=== PATIENT | male | born 1955 | race Caucasian/White ===

== ENCOUNTER 2016-12-06 14:09 | Emergency (ER) | payer BC ==
--- NOTE | 2016-12-06 15:14 | ED ---
General Adult HPI - General Chief complaint: Extremity Problem,Nontraumatic Stated complaint: Leg Pain Time Seen by Provider: 12/06/16 14:58 Source: patient, RN notes reviewed Mode of arrival: wheelchair Limitations: no limitations - History of Present Illness Initial comments: This is a 61-year-old male who presents with right lower extremity pain 2 weeks. Patient states he has pain to the posterior right leg along with intermittent diminished sensation to the right lower extremity. Patient is able to ambulate but states this is painful. Patient denies any injury or trauma to the right lower extremity. Patient confirms that he has had some pain to his tailbone and has had multiple injuries over the years to the tailbone but no recent injury. Patient denies any lower back pain today. Patient denies any radicular pain, weakness/numbness or tingling today in the [facility]. Patient admits to tobacco use but denies any history of blood clots. Patient denies noticing any swelling. Patient denies any triggers of the pain and states it started randomly. Patient denies any recent fever, chills, shortness breath, chest pain, abdominal pain, nausea/vomiting/diarrhea, hematuria, headache, or visual changes, or any other complaints. - Related Data Previous Rx's Medication Instructions Recorded Cyclobenzaprine [Flexeril] 5 mg PO HS 3 Days 12/06/16 Dexamethasone 0.75 mg PO DIRECTED #12 tab 12/06/16 Allergies Allergy/AdvReac Type Severity Reaction Status Date / Time No Known Allergies Allergy Verified 12/06/16 14:21 Review of Systems ROS Statement: Those systems with pertinent positive or pertinent negative responses have been documented in the HPI. ROS Other: All systems not noted in ROS Statement are negative. Past Medical History Past Medical History: COPD History of Any Multi-Drug Resistant Organisms: None Reported Past Psychological History: No Psychological Hx Reported Smoking Status: Current every day smoker Past Alcohol Use History: None Reported Past Drug Use History: None Reported General Exam - General Exam Comments Initial Comments: General: The patient is awake and alert, in no distress, and does not appear acutely ill. Neck: The neck is supple, there is no tenderness or JVD. Cardiovascular: There is a regular rate and rhythm. No murmur, rub or gallop is appreciated. Respiratory: Lungs are clear to auscultation, respirations are non-labored, breath sounds are equal. No wheezes, stridor, rales, or rhonchi. Musculoskeletal: There is tenderness to palpation to the posterior right thigh, right knee and right calf. There is no swelling, erythema or ecchymosis. Patient has mild tenderness to the lower lumbar spine/sacrum. Patient has full range of motion, strength 5/5. Sensation intact. Dorsalis pedis and posterior tibial pulses laterally and capillary refill is normal at less than 2 seconds. Neurological: A&O x 3. CN II-XII intact, There are no obvious motor or sensory deficits. Coordination appears grossly intact. Speech is normal. Skin: Skin is warm and dry and no rashes or lesions are noted. Psychiatric: Normal mood and affect. Limitations: no limitations Course Vital Signs 12/06/16 12/06/16 14:18 17:00 Temperature 97.8 F 98.0 F Pulse Rate 66 80 Respiratory 20 18 Rate Blood Pressure 150/81 136/68 O2 Sat by Pulse 98 98 Oximetry Medical Decision Making - Medical Decision Making This is a 61-year-old male presents with right lower extremity pain. On physical exam patient is ambulatory in the . There is tenderness to palpation to the posterior right thigh, right knee and right calf. There is no swelling, erythema or ecchymosis. Patient has mild tenderness to the lower lumbar spine/sacrum. Patient has full range of motion, strength 5/5. Sensation intact. Dorsalis pedis and posterior tibial pulses laterally and capillary refill is normal at less than 2 seconds. X-rays of the lumbar spine and sacrum were done and reviewed showing: X-ray lumbar spine: No acute fracture or dislocation is seen in the lumbar spine. Degenerative changes as discussed: there is severe degenerative change noted at L4-L5 and moderate to severe narrowing at L5-S1. Scattered ventral spondylosis as well as facet joint arthropathy. No evidence for compression fracture or osseous lesion. Report read by Dr. Blackburn. X-ray sacrum and coccyx: Normal study. Reported by Dr. Blackburn A Doppler of the right lower extremity was done and reviewed showing: No evident deep venous thrombosis at or above the right knee. Reported by Dr. Hartmann. I discussed the results with patient. I discussed that the degenerative changes in his back could be causing his pain. Patient admits at this point that this pain did start with mild shooting pain down the right leg. I discussed [id number] Aleve and Tylenol. I discussed the patient be given a prescription for Flexeril to take at night and I discussed sedation effects. I discussed that the patient will be started on a prescription for Decadron dose pack as well. I discussed return parameters and at the patient should follow-up with orthopedics. Discussed that patient should follow up with PCP in one to 2 days or return to the [facility] for any worsening symptoms or for any further concerns. Patient and were receptive to this plan and patient will be discharged home. I discussed this case with attending physician Dr. Ervin who agrees the plan as stated above. Disposition Clinical Impression: Right leg pain, Back pain, Radiculopathy Disposition: HOME SELF-CARE Condition: Good Instructions: Back Pain (ED) Additional Instructions: Please use prednisone and Flexeril as prescribed. Please do not drink alcohol or drive while taking Flexeril can make you drowsy. These use [id number] Tylenol and Motrin/Aleve/naproxen for back pain. Ice or heating pad may help as well. Please follow-up with orthopedics and your primary care physician. Please return to the [facility] for any worsening symptoms or for any further concerns. Prescriptions: Cyclobenzaprine [Flexeril] 5 mg PO HS 3 Days Dexamethasone 0.75 mg PO DIRECTED #12 tab Referrals: Sydnee Sandy MD [Primary Care Provider] - 1-2 days Julian Raya MD [STAFF PHYSICIAN] - 1-2 days Time of Disposition: 16:53
--- NOTE | 2016-12-06 15:42 | XR ---
EXAMINATION TYPE: XR lumbar spine 2 or 3V DATE OF EXAM: 12/06/2016 3:35 PM CLINICAL HISTORY: pain TECHNIQUE: Three views of the lumbar spine are submitted. COMPARISON: None. FINDINGS: There is severe degenerative change noted at L4-5 and moderate to severe narrowing at L5-S1. Scattere d ventral spondylosis as well as facet joint arthropathy. No evidence for compression fracture osseou s lesion. IMPRESSION: No acute fracture or dislocation is seen in the lumbar spine. Degenerative changes as discussed. ICD 10 NO FRACTURE, INITIAL EVALUATION
--- NOTE | 2016-12-06 15:42 | XR ---
EXAMINATION TYPE: XR sacrum coccyx DATE OF EXAM: 12/06/2016 3:35 PM CLINICAL HISTORY: pain TECHNIQUE: Three views of the sacrum and coccyx are submitted. COMPARISON: None Sacral alae appear symmetric. No evidence for fracture or bony lesion. Sacroiliac joints are within normal limits. Visualized coccygeal segments are free of fracture or lesion. IMPRESSION: Normal study
--- NOTE | 2016-12-06 16:36 | US ---
EXAMINATION TYPE: US venous doppler duplex LE RT DATE OF EXAM: 12/06/2016 4:18 PM COMPARISON: NONE CLINICAL HISTORY: Pain. Rt leg pain. No hx of blood clots or on any blood thinners SIDE PERFORMED: Right VESSELS IMAGED: External Iliac Vein (EIV) Common Femoral Vein Deep Femoral Vein Greater Saphenous Vein * Femoral Vein Popliteal Vein Small Saphenous Vein * Proximal Calf Veins (* superficial vessels) Right Leg: Appears negative for DVT. Lymph nodes incidentally noted right groin. Grayscale, color Doppler, spectral Doppler imaging performed of the deep veins of the right lower ext remity. IMPRESSION: No evident deep venous thrombosis at or above the right knee.
[2016-12-06 17:07] VITALS: BP 136/68; PULSE 80; RESP 18; TEMP 98
== END 2016-12-06 17:00 | disposition home or self-care (01) ==
LOC: EC 14:09
DX: M48.07 Spinal stenosis, lumbosacral region (principal); M46.96 Unspecified inflammatory spondylopathy, lumbar region; M47.26 Other spondylosis with radiculopathy, lumbar region; F17.200 Nicotine dependence, unspecified, uncomplicated; Z87.828 Personal history of other (healed) physical injury and trauma
CPT/HCPCS: 72100; 72220; 99284

== ENCOUNTER 2018-08-18 16:26 | Emergency (ER) | payer BC ==
[2018-08-18 16:43] VITALS: RESP 18; TEMP 99
[2018-08-18 17:06] LABS: Basophils # (A) 0.1 k/uL (0-0.2); Basophils % (A) 1 %; Eosinophils # (A) 0.8 k/uL (0-0.7); Eosinophils % (A) 6 %; HCT 41.9 % (39.0-53.0); HGB 14.1 gm/dL (13.0-17.5); Lymphocytes # (A) 2.1 k/uL (1.0-4.8); Lymphocytes % (A) 16 %; MCH 33.2 pg (25.0-35.0); MCHC 33.5 g/dL (31.0-37.0); MCV 99.1 fL (80.0-100.0); Mean Platelet Volume 6.6; Monocytes % (A) 8 %; Neutrophils # (A) 9.2 k/uL (1.3-7.7); Neutrophils % (A) 68 %; Platelet Count 316 k/uL (150-450); RBC 4.23 m/uL (4.30-5.90); RDW 12.2 % (11.5-15.5); WBC 13.5 k/uL (3.8-10.6)
[2018-08-18 17:16] LABS: INR 0.9 (<1.2); Partial Thromboplastin Time 22.4 sec (22.0-30.0); Prothrombin Time 10.2 sec (9.0-12.0)
[2018-08-18 17:24] LABS: ALT 23 U/L (21-72); AST 20 U/L (17-59); Albumin 3.6 g/dL (3.5-5.0); Alkaline Phosphatase 54 U/L (38-126); Anion Gap 9 mmol/L; Blood Urea Nitrogen 10 mg/dL (9-20); Calcium 8.7 mg/dL (8.4-10.2); Carbon Dioxide 23 mmol/L (22-30); Chloride 104 mmol/L (98-107); Glucose 91 mg/dL (74-99); Lipase 150 U/L (23-300); Magnesium 1.8 mg/dL (1.6-2.3); Potassium 4.1 mmol/L (3.5-5.1); Sodium 136 mmol/L (137-145); Total Bilirubin 0.3 mg/dL (0.2-1.3); Total Protein 6.3 g/dL (6.3-8.2)
[2018-08-18 17:25] LABS: Creatine Kinase 65 U/L (55-170)
[2018-08-18 17:38] LABS: Creatine Kinase MB 0.5 ng/mL (0.0-2.4); Troponin I <0.012 ng/mL (0.000-0.034)
--- NOTE | 2018-08-18 17:42 | ED ---
Chest Pain HPI - General Chief Complaint: Chest Pain Stated Complaint: chest pain Time Seen by Provider: 08/18/18 16:27 Source: patient, RN notes reviewed, old records reviewed Mode of arrival: EMS Limitations: no limitations - History of Present Illness Initial Comments: This is a 62-year-old male to the ER for evaluation of chest pain. Patient was at the bar drinking some alcohol today had 3 or 4 beers and then persisted with chest pain chest pain anteriorly to both lateral ribs. Patient has history of COPD no other medications takes no other medications. No surgical history. No abdominal pain no nausea vomiting. No diaphoresis, no shortness of breath currently. Patient states the chest pain has persisted -: hour(s) Onset: during rest Pain Location: substernal, epigastric Pain Radiation: other (Bilateral flanks) Severity: moderate Severity scale (1-10): 6 Quality: sharp Consistency: constant Improves With: nothing Worsens With: nothing Context: other (None) Anginal Symptoms: other (None) Other Symptoms: other (None) Treatments Prior to Arrival: none - Related Data Home Medications Medication Instructions Recorded Confirmed Albuterol Inhaler [Ventolin Hfa 2 puff INHALATION RT-QID PRN 08/18/18 08/18/18 Inhaler] Albuterol Nebulized [Ventolin 2.5 mg INHALATION RT-QID PRN 08/18/18 08/18/18 Nebulized] Levothyroxine Sodium [Synthroid] 100 mcg PO DAILY 08/18/18 08/18/18 Allergies Allergy/AdvReac Type Severity Reaction Status Date / Time No Known Allergies Allergy Verified 08/18/18 16:32 Review of Systems ROS Statement: Those systems with pertinent positive or pertinent negative responses have been documented in the HPI. ROS Other: All systems not noted in ROS Statement are negative. EKG Findings - EKG Comments: EKG Findings:: EKG shows NSR 63 WA 154 QRS 100 QTc 442 Past Medical History Past Medical History: COPD, Thyroid Disorder Additional Past Medical History / Comment(s): pvd History of Any Multi-Drug Resistant Organisms: None Reported Additional Past Surgical History / Comment(s): bypass in legs Past Psychological History: No Psychological Hx Reported Smoking Status: Current every day smoker Past Alcohol Use History: Daily Past Drug Use History: None Reported General Exam Limitations: no limitations General appearance: alert, in no apparent distress Head exam: Present: atraumatic, normocephalic, normal inspection Eye exam: Present: normal appearance, PERRL, EOMI. Absent: scleral icterus, conjunctival injection, periorbital swelling ENT exam: Present: normal exam, mucous membranes moist Neck exam: Present: normal inspection. Absent: tenderness, meningismus, lymphadenopathy Respiratory exam: Present: normal lung sounds bilaterally. Absent: respiratory distress, wheezes, rales, rhonchi, stridor Cardiovascular Exam: Present: regular rate, normal rhythm, normal heart sounds. Absent: systolic murmur, diastolic murmur, rubs, gallop, clicks GI/Abdominal exam: Present: soft, normal bowel sounds. Absent: distended, tenderness, guarding, rebound, rigid Extremities exam: Present: normal inspection, full ROM, normal capillary refill. Absent: tenderness, pedal edema, joint swelling, calf tenderness Back exam: Present: normal inspection Neurological exam: Present: alert, oriented X3, CN II-XII intact Psychiatric exam: Present: normal affect, normal mood Skin exam: Present: warm, dry, intact, normal color. Absent: rash Course Vital Signs 08/18/18 08/18/18 08/18/18 16:33 16:37 17:00 Temperature 99.0 F Pulse Rate 60 61 Respiratory 18 Rate Blood Pressure 135/84 135/84 O2 Sat by Pulse 96 97 98 Oximetry 08/18/18 08/18/18 08/18/18 18:00 19:01 20:00 Temperature Pulse Rate 53 L 48 L 54 L Respiratory Rate Blood Pressure 135/84 147/102 165/102 O2 Sat by Pulse 100 100 97 Oximetry 08/18/18 21:00 Temperature Pulse Rate 48 L Respiratory Rate Blood Pressure 149/86 O2 Sat by Pulse 100 Oximetry - Reevaluation(s) Reevaluation #1: 08/18/18 18:26 Medical record is reviewed Reevaluation #2: 08/18/18 18:26 Patient requesting pain medication, pain is improved Chest Pain MDM - MDM 62 male the ER for evaluation chest pain nonspecific chest pain that occurred after drinking alcohol tonight. Patient's pain is epigastric radiating around chest, patient is CT which is negative labwork which is negative. Patient wanted to stay in hospital, refusing to stay in hospital will be discharged home Disposition Clinical Impression: Chest pain Disposition: HOME SELF-CARE Condition: Good Instructions: Chest Pain (ED) Is patient prescribed a controlled substance at d/c from ED?: No Referrals: Sydnee Sandy MD [Primary Care Provider] - 1-2 days
[2018-08-18] MEDS ORDERED: MORPHINE SULFATE 4 MG/ML SYRINGE IVP STA (17:58)
--- NOTE | 2018-08-18 20:15 | CT ---
EXAMINATION TYPE: CT angio chest DATE OF EXAM: 08/18/2018 8:06 PM COMPARISON: None HISTORY: Chest pain. CT DLP: 323.2 mGycm Automated exposure control for dose reduction was used. CONTRAST: CTA scan of the thorax is performed with IV Contrast, patient injected with 100ml mL of Isovue 370, p ulmonary embolism protocol. There are 3-D post processed images.. FINDINGS: There is diffuse pulmonary emphysema. There is pulmonary hyperinflation mild flattening of the diaphr agm. There is no mediastinal adenopathy. Thoracic aorta is atheromatous. There is no evidence of aneu rysm or dissection. There are multiple enlarged bronchial lymph nodes that measure up to 2.3 cm. Ther e is subcarinal adenopathy. There is enlarged peritracheal lymph node that measures 2.2 cm. There is enlarged lymph node in the aortopulmonary window that measures 2.7 x 2 cm. Heart size is normal. Ther e is no pericardial effusion. There is mild scarring and subsegmental atelectasis at the lung bases. Images of the upper abdomen appeared to show some enlarged mesenteric lymph nodes. There is normal contrast opacification of the pulmonary arteries. I see no filling defect. There is n o thoracic compression fracture. I see no bony destructive process. IMPRESSION: NO EVIDENCE OF PULMONARY EMBOLISM. MEDIASTINAL AND BRONCHIAL ADENOPATHY APPEARS SLIGHTLY WORSE THAN O LD CT SCAN OF 07/26/2016. LYMPHOMA SHOULD BE CONSIDERED.
--- NOTE | 2018-08-18 20:20 | CT ---
EXAMINATION TYPE: CT abdomen pelvis w con DATE OF EXAM: 08/18/2018 COMPARISON: None HISTORY: Chest pain. CT DLP: 621.7 mGycm Automated exposure control for dose reduction was used. TECHNIQUE: Helical acquisition of images was performed from the lung bases through the pelvis. CONTRAST: Performed without Oral Contrast and with IV Contrast, patient injected with 100ml mL of Isovue 370. FINDINGS: There is mild atelectasis at the posterior lung bases. There is no pleural effusion. Liver shows no focal defect. Spleen appears normal. The stomach appears normal. There is no evidence of a pancreatic mass. The bile ducts are not dilated. Gallbladder appears normal. There is a 12 mm ce liac lymph node. I see no other significant evidence for mesenteric adenopathy. There is no adrenal mass. Kidneys show satisfactory contrast opacification. There is no hydronephrosi s. There is no retroperitoneal adenopathy. There is no ascites. Bladder distends smoothly. There is p rostatic calcification. There is no inguinal hernia. There is no free fluid in the pelvis. There is n o sign of a bowel obstruction. There is atherosclerotic vascular calcification in the abdominal aorta and the iliac arteries. The appendix appears normal. There are spondylotic changes in the lumbar spi ne. There is no compression fracture. Bony pelvis is intact. I see no focal bone destruction. IMPRESSION: ATHEROSCLEROTIC VASCULAR DISEASE. No sign of an acute abdomen and pelvis. Normal appendix. Urinary bl adder is large and could relate to bladder outlet obstruction.
[2018-08-18 21:33] VITALS: BP 149/86; PULSE 48
--- NOTE | 2018-08-19 02:43 | XR ---
EXAMINATION TYPE: XR chest 2V DATE OF EXAM: 08/18/2018 COMPARISON: 09/24/2015 HISTORY: Chest pain TECHNIQUE: Frontal and lateral views of the chest are obtained. FINDINGS: There is some coarsening of interstitial pulmonary markings. Heart size is normal. There i s no heart failure. Costophrenic angles are clear. There are chest leads. IMPRESSION: Minimal pulmonary fibrotic changes. There is probably some COPD. No acute lung disease. No significant change.
== END 2018-08-18 21:31 | disposition home or self-care (01) ==
LOC: EC 16:26
DX: R07.81 Pleurodynia (principal); R10.13 Epigastric pain; J44.9 Chronic obstructive pulmonary disease, unspecified; E07.9 Disorder of thyroid, unspecified; I73.9 Peripheral vascular disease, unspecified; F17.200 Nicotine dependence, unspecified, uncomplicated; Z79.899 Other long term (current) drug therapy; Z98.890 Other specified postprocedural states
CPT/HCPCS: 36415; 93005; 83880; 80053; 82550; 82553; 83690; 83735; 84484; 85025; 85610; 85730; 80320; 71046; 71275; 74177; 99285; 96374; J2270; Q9967

== ENCOUNTER → 2019-06-06 | Outpatient (CLI) | payer OTHER ==
--- NOTE | 2019-06-06 16:12 | CT ---
EXAMINATION TYPE: CT chest w con DATE OF EXAM: 06/06/2019 COMPARISON: CT 08/18/2018 HISTORY: enlarged lymph nodes. hx of thyroid ca. CT DLP: 489 mGycm Automated exposure control for dose reduction was used. CONTRAST: CT scan of the chest is performed with IV Contrast, patient injected with 100 mL of Isovue 300. FINDINGS: LUNGS: The lungs are grossly clear, there is no concerning parenchymal mass or nodule identified. Th ere is moderate emphysema as noted on prior exam. There is no pleural effusion or pneumothorax seen. The tracheobronchial tree is patent. MEDIASTINUM: There is similar appearance to the bilateral hilar adenopathy. Subcarinal adenopathy, re trocaval pre tracheal and aorticopulmonary window adenopathy, prevascular nodes are similar in appear ance. No pericardial effusion is seen. Coronary artery calcifications are moderate. AORTA: No additional significant abnormality is seen. OTHER: No additional significant abnormality is seen. IMPRESSION: Mediastinal adenopathy, hilar adenopathy shows a similar appearance to prior exam. Coron shelia artery disease. Emphysema.
== END | disposition home or self-care (01) ==
LOC: RADCTMAIN 14:42
PROVIDERS: ATTEND Thoracic Surgery (Cardiothoracic Vascular Surgery)
DX: R59.0 Localized enlarged lymph nodes (principal); J43.9 Emphysema, unspecified; I25.10 Atherosclerotic heart disease of native coronary artery without angina pectoris
CPT/HCPCS: 71260; Q9967

== ENCOUNTER → 2020-02-13 | Outpatient (CLI) | payer OTHER ==
--- NOTE | 2020-02-13 11:01 | CT ---
EXAMINATION TYPE: CT chest w con DATE OF EXAM: 02/13/2020 COMPARISON: Prior chest CT June 06, 2019 and older studies. HISTORY: hx of enlarged lymph nodes CT DLP: 248.5 mGycm. Automated Exposure Control for Dose Reduction was Utilized. TECHNIQUE: CT scan of the thorax is performed following with IV Contrast, patient injected with 100 mL of Isovue 300. FINDINGS: LUNGS: Background mild to moderate underlying emphysematous change remains present. Focal mild/modera te linear scarring in the right middle lobe just above the diaphragm and mild linear scarring in both lower lobes just above the diaphragm is redemonstrated. No new suspicious nodules or masses. No pleu ral effusion or pneumothorax bilaterally. MEDIASTINUM: There are persistent abnormal enlarged bilateral hilar and mediastinal lymph nodes with some areas of punctate calcification in the bilateral hilar along with subcarinal, prevascular, and r ight tracheobronchial lymph nodes. The confluent right paratracheal adenopathy is larger from 2016 s tudies but not significantly changed from most recent CT in 2019. No cardiomegaly or pericardial effu gerry is seen. There is coronary artery calcification and/or stents redemonstrated. OTHER: Persistent prominent but subcentimeter bilateral axillary lymph nodes with some punctate calci fications. There is a single enlarged high left axillary lymph node with inferior calcification measu ring 2.6 x 1.6 cm axial image 9 not significantly changed from most recent CT. Axillary lymph nodes a re larger in size from 2016 CT. Slight scoliotic curvature with mild to moderate multilevel spurring. IMPRESSION: Persistent enlarged partially calcified thoracic adenopathy with progression in size from 2016, no significant change from most recent study 2019. Differential includes product of old granul omatous disease, sarcoidosis/silicosis, and possible other less common causes such as Castleman's dis ease.
== END | disposition home or self-care (01) ==
LOC: RADCTMAIN 09:56
PROVIDERS: ATTEND Thoracic Surgery (Cardiothoracic Vascular Surgery)
DX: R59.9 Enlarged lymph nodes, unspecified (principal); D47.Z2 Castleman disease
CPT/HCPCS: 71260; Q9967

== ENCOUNTER 2024-02-10 14:32 | Inpatient (IN) | payer MEDICARE ==
--- NOTE | 2024-02-10 15:00 | ED ---
General Adult HPI - General Chief complaint: Chest Pain Stated complaint: Chest Pain Time Seen by Provider: 02/10/24 14:40 Source: patient, RN notes reviewed, old records reviewed Mode of arrival: EMS Limitations: no limitations - History of Present Illness Initial comments: This is a 68-year-old male who presents to the emergency department with a past medical history significant for COPD. Patient comes in today stating that he woke up this morning had pressure on the left side of his chest and has continued all day long. Patient states nitroglycerin they gave him in the ambulance seem to help. Patient also got 4 baby aspirin today. Patient states he is always short of breath that was difficult to tell if his shortness of breath got worse. Patient did not notice any exertion making it worse. Patient denies any diaphoresis. Patient has any nausea vomiting. Patient Nuys any recent fever chills but states he did have pneumonia in the recent past. Patient denies any swelling to his legs that is new. Patient Nuys any calf tenderness - Related Data Home Medications Medication Instructions Recorded Confirmed Albuterol Inhaler [Ventolin Hfa 2 puff INHALATION RT-QID PRN 08/18/18 08/18/18 Inhaler] Albuterol Nebulized [Ventolin 2.5 mg INHALATION RT-QID PRN 08/18/18 08/18/18 Nebulized] Levothyroxine Sodium [Synthroid] 100 mcg PO DAILY 08/18/18 08/18/18 Allergies Allergy/AdvReac Type Severity Reaction Status Date / Time No Known Allergies Allergy Verified 08/18/18 16:32 Review of Systems ROS Statement: Those systems with pertinent positive or pertinent negative responses have been documented in the HPI. ROS Other: All systems not noted in ROS Statement are negative. Past Medical History Past Medical History: COPD, Thyroid Disorder Additional Past Medical History / Comment(s): pvd History of Any Multi-Drug Resistant Organisms: None Reported Additional Past Surgical History / Comment(s): bypass in legs Past Psychological History: No Psychological Hx Reported Smoking Status: Former smoker Past Alcohol Use History: Daily Past Drug Use History: None Reported General Exam - General Exam Comments Initial Comments: GENERAL: Patient is well-developed and well-nourished. Patient is nontoxic and well- hydrated and is in mild distress. ENT: Neck is soft and supple. No significant lymphadenopathy is noted. Oropharynx is clear. Moist mucous membranes. Neck has full range of motion without eliciting any pain. EYES: The sclera were anicteric and conjunctiva were pink and moist. Extraocular movements were intact and pupils were equal round and reactive to light. Eyelids were unremarkable. PULMONARY: Unlabored respirations. Good breath sounds bilaterally. No audible rales rhon chi or wheezing was noted. CARDIOVASCULAR: There is a regular rate and rhythm without any murmurs gallops or rubs. ABDOMEN: Soft and nontender with normal bowel sounds. No palpable organomegaly was noted. There is no palpable pulsatile mass. SKIN: Skin is clear with no lesions or rashes and otherwise unremarkable. NEUROLOGIC: Patient is alert and oriented x3. Cranial nerves II through XII are grossly intact. Motor and sensory are also intact. Normal speech, volume and content. Symmetrical smile. MUSCULOSKELETAL: Normal extremities with adequate strength and full range of motion. No lower extremity swelling or edema. No calf tenderness. LYMPHATICS: No significant lymphadenopathy is noted PSYCHIATRIC: Normal psychiatric evaluation. Normal interpersonal interactions appears functionally intact in deals appropriately with others. No signs of depression. No signs of anxiety. Limitations: no limitations Course Vital Signs 02/10/24 14:43 Temperature 97.4 F L Pulse Rate 51 L Respiratory 20 Rate Blood Pressure 176/90 O2 Sat by Pulse 98 Oximetry Medical Decision Making - Medical Decision Making EKG is interpreted by myself. EKG shows sinus bradycardia 47 bpm [place] interval 136 QRS is 90 QT interval is 476 QTc is 440. Patient's EKG shows no ST segment elevation. Patient's bradycardia is been consistent with previous visits Was pt. sent in by a medical professional or institution (, PA, SPEECH LANG PATH THERAPIST, urgent care, hospital, or halfway...) When possible be specific @ -No Did you speak to anyone other than the patient for history (EMS, parent, family, police, friend...)? What history was obtained from this source @ -No Did you review nursing and triage notes (agree or disagree)? Why? @ -I reviewed and agree with nursing and triage notes Were old charts reviewed (outside hosp., previous admission, EMS record, old EK G, old radiological studies, urgent care reports/EKG's, halfway records)? Report findings @ -I reviewed prior charts and this patient prior x-rays and compared to today's x-ray and prior lab work comparing previous troponins with today's troponin Differential Diagnosis (chest pain, altered mental status, abdominal pain women, abdominal pain men, vaginal bleeding, weakness, fever, dyspnea, syncope, headache, dizziness, GI bleed, back pain, seizure, CVA, palpatations, mental health, musculoskeletal)? @ -Differential Chest Pain: Stable Angina, Unstable Angina, STEMI, NSTEMI Aortic Dissection, Pneumothorax, Musculoskeletal, Esophageal Spasm GERD, Cholecystitis, Pancreatitis, Zoster, this is not meant to be an all-inclusive list. EKG interpreted by me (3pts min.). @ -As above X-rays interpreted by me (1pt min.). @ -Chest x-ray shows no acute abnormality CT interpreted by me (1pt min.). @ -None done U/S interpreted by me (1pt. min.). @ -None done What testing was considered but not performed or refused? (CT, X-rays, U/S, labs)? Why? @ -None What meds were considered but not given or refused? Why? @ -None Did you discuss the management of the patient with other professionals (pro fessionals i.e. , PA, SPEECH [employer]ANG PATH THERAPIST, lab, RT, psych nurse, social worker clinical, dye worker, teacher, ordnance officer, pillowcase cutter)? Give summary @ -I spoke with [facility] they agreed admit the patient admit the patient wrote admitting orders Was smoking cessation discussed for >3mins.? @ -No Was critical care preformed (if so, how long)? @ -No Were there social determinants of health that impacted care today? How? (Homelessness, low income, unemployed, alcoholism, drug addiction, transportation, low edu. Level, literacy, decrease access to med. care, custodial, rehab)? @ -No Was there de-escalation of care discussed even if they declined (Discuss DNR or withdrawal of care, Hospice)? DNR status @ -No What co-morbidities impacted this encounter? (DM, HTN, Smoking, COPD, CAD, Cancer, CVA, ARF, Chemo, Hep., AIDS, mental health diagnosis, sleep apnea, morbid obesity)? @ -COPD hypertension smoking Was patient admitted / discharged? Hospital course, mention meds given and route, prescriptions, significant lab abnormalities, going to OR and other pertinent info. @ -Patient was given Nitropaste in the emergency department labs came back within normal range chest x-ray showed no acute normality I spoke with [facility] they agreed admit the patient to the patient with admitting orders Undiagnosed new problem with uncertain prognosis? @ -No Drug Therapy requiring intensive monitoring for toxicity (Heparin, Nitro, Insulin, Cardizem)? @ -No Were any procedures done? @ -No Diagnosis/symptom? @ -Chest pain Acute, or Chronic, or Acute on Chronic? @ -Acute Uncomplicated (without systemic symptoms) or Complicated (systemic symptoms)? @ -Complicated Side effects of treatment? @ -No Exacerbation, Progression, or Severe Exacerbation? @ -No Poses a threat to life or bodily function? How? (Chest pain, USA, MS, pneumonia, PE, COPD, DKA, ARF, appy, cholecystitis, CVA, Diverticulitis, Homicidal, Suicidal, threat to staff... and all critical care pts) @ -Yes this can lead to an MS and endorgan dysfunction Disposition Clinical Impression: Chest pain Disposition: ADMITTED IP TO THIS HOSP Referrals: Sydnee Sandy MD [Primary Care Provider] - 1-2 days Time of Disposition: 15:43
[2024-02-10] MEDS ORDERED: NITROGLYCERIN SL TABS 0.4 MG TAB SUBLINGUAL PRN (15:43)
[2024-02-10] MEDS: NITROGLYCERIN OINT 1 INCH/GM PACKET TOPICAL STA (15:44)
[2024-02-10 15:57] LABS: Basophils # (A) 0.1 k/uL (0-0.2); Basophils % (A) 1 %; Eosinophils # (A) 0.1 k/uL (0-0.7); Eosinophils % (A) 2 %; HCT 35.3 % (39.0-53.0); HGB 10.8 gm/dL (13.0-17.5); Lymphocytes # (A) 0.7 k/uL (1.0-4.8); Lymphocytes % (A) 10 %; MCH 29.4 pg (25.0-35.0); MCHC 30.6 g/dL (31.0-37.0); MCV 95.8 fL (80.0-100.0); Mean Platelet Volume 7.2; Monocytes # (A) 0.5 k/uL (0-1.0); Monocytes % (A) 7 %; Neutrophils # (A) 5.4 k/uL (1.3-7.7); Neutrophils % (A) 78 %; Platelet Count 458 k/uL (150-450); RBC 3.68 m/uL (4.30-5.90); RDW 15.5 % (11.5-15.5); WBC 6.9 k/uL (3.8-10.6)
[2024-02-10 16:06] LABS: INR 1.1 (<1.2); Partial Thromboplastin Time 26.7 sec (22.0-30.0); Prothrombin Time 11.9 sec (10.0-12.5)
[2024-02-10] MEDS ORDERED: IPRATROPIUM-ALBUTEROL 3 ML NEB INHALATION PRN (16:06)
--- NOTE | 2024-02-10 16:07 | XR ---
EXAMINATION TYPE: XR chest 2V DATE OF EXAM: 02/10/2024 3:59 PM CLINICAL INDICATION:Male, 68 years old with history of Chest Pain; COMPARISON: Chest radiographs from 07/19/2018 TECHNIQUE: XR chest 2V Frontal and lateral views of the chest. FINDINGS: Lungs/Pleura: Right pleural effusion with associated atelectasis. There is small left pleural effusion also present . Pulmonary vascularity: Unremarkable. Heart/mediastinum: Cardiomediastinal silhouette is partially obscured due to overlying and adjacent o pacities. Musculoskeletal: No acute osseous pathology. IMPRESSION: Development of bilateral pleural effusions, right greater than left.
[2024-02-10 16:11] LABS: ALT 147 U/L (4-49); AST 149 U/L (17-59); African American GFR (CKD) >90 (>60 ml/min/1.73 sqM); Alkaline Phosphatase 85 U/L (38-126); Anion Gap 4 mmol/L; Blood Urea Nitrogen 18 mg/dL (9-20); Calcium 8.1 mg/dL (8.4-10.2); Carbon Dioxide 29 mmol/L (22-30); Chloride 102 mmol/L (98-107); Glucose 98 mg/dL (74-99); Magnesium 1.9 mg/dL (1.6-2.3); Non-African American GFR(CKD) >90 (>60 ml/min/1.73 sqM); Potassium 3.4 mmol/L (3.5-5.1); Sodium 135 mmol/L (137-145); Total Protein 5.5 g/dL (6.3-8.2)
--- NOTE | 2024-02-10 16:33 | P.HPIM ---
History of Present Illness 68-year-old male came in with complaints of left-sided chest pain which started today morning. Troponin is negative EKG did not show any acute ST-T wave changes. Patient had a chest x-ray which showed bilateral pleural effusions patient did complain of some shortness of breath denies any orthopnea paroxysmal nocturnal dyspnea patient does not have any peripheral edema. Patient serum sodium is slightly low at 135. Patient took 4 baby aspirin's. Patient's chest pain is nonradiating no associated shortness of breath or lightheadedness. No fever chills. Patient does have cough. Patient does use 4 L of oxygen at home does have history of COPD quit smoking. REVIEW OF SYSTEMS: CONSTITUTIONAL: No fever, no malaise, no fatigue. HEENT: No recent visual problems or hearing problems. Denied any sore throat. CARDIOVASCULAR: No orthopnea, PND, no palpitations, no syncope. PULMONARY: no hemoptysis. GASTROINTESTINAL: No diarrhea, no nausea, no vomiting, no abdominal pain. NEUROLOGICAL: No headaches, no weakness, no numbness. HEMATOLOGICAL: Denies any bleeding or petechiae. GENITOURINARY: Denies any burning micturition, frequency, or urgency. MUSCULOSKELETAL/RHEUMATOLOGICAL: Denies any joint pain, swelling, or any muscle pain. ENDOCRINE: Denies any polyuria or polydipsia. The rest of the 14-point review of systems is negative. PHYSICAL EXAMINATION: GENERAL: The patient is alert and oriented x3, not in any acute distress. Well developed, well nourished. HEENT: Pupils are round and equally reacting to light. EOMI. No scleral icterus. No conjunctival pallor. Normocephalic, atraumatic. No pharyngeal erythema. No thyromegaly. CARDIOVASCULAR: S1 and S2 present. No murmurs, rubs, or gallops. PULMONARY: Chest is clear to auscultation, no wheezing or crackles. ABDOMEN: Soft, nontender, nondistended, normoactive bowel sounds. No palpable organomegaly. MUSCULOSKELETAL: No joint swelling or deformity. EXTREMITIES: No cyanosis, clubbing, or pedal edema. NEUROLOGICAL: Gross neurological examination did not reveal any focal deficits. SKIN: No rashes. Assessment and plan Chest pain will rule out acute coronary syndromes cardiology will evaluate the patient -Bilateral pleural effusions probably congestive heart failure new onset will obtain echocardiogram rule out any BNP patient will be started on IV Lasix if there is no improvement patient will need paracentesis at the time. -Shortness of breath probably secondary to bilateral pleural effusions -COPD with mild acute exacerbation patient will be started on inhaled steroids and additional treatments -Chronic hypercapnic respiratory failure uses 4 L of oxygen at home which will be continued Patient is saturating at 98% on 4 L -Transaminitis probably due to hepatic congestion will also obtain ultrasound of the gallbladder along with hepatitis panel and repeat CMP tomorrow -Hypothyroidism DVT prophylaxis: Heparin text Past Medical History Past Medical History: COPD, Thyroid Disorder Additional Past Medical History / Comment(s): pvd History of Any Multi-Drug Resistant Organisms: None Reported Additional Past Surgical History / Comment(s): bypass in legs Past Psychological History: No Psychological Hx Reported Smoking Status: Former smoker Past Alcohol Use History: Daily Past Drug Use History: None Reported Medications and Allergies Home Medications Medication Instructions Recorded Confirmed Type Apixaban [Eliquis] 5 mg PO DAILY 02/10/24 02/10/24 History Fluticasone/Umeclidin/Vilanter 1 puff INHALATION RT-DAILY 02/10/24 02/10/24 History [Trelegy Ellipta 100-62.5-25] Levothyroxine Sodium [Synthroid] 125 mcg PO DAILY 02/10/24 02/10/24 History Allergies Allergy/AdvReac Type Severity Reaction Status Date / Time No Known Allergies Allergy Verified 02/10/24 16:06 Physical Exam Vitals: Vital Signs Temp Pulse Resp BP Pulse Ox 02/10/24 14:43 97.4 F L 51 L 20 176/90 98 Intake and Output 02/10/24 02/10/24 02/10/24 06:59 14:59 22:59 Other: Weight 58.967 kg Results CBC & Chem 7: 02/10/24 14:36 02/10/24 14:36 Labs: Abnormal Lab Results - Last 24 Hours (Table) 02/10/24 02/10/24 Range/Units 14:36 14:36 RBC 3.68 L (4.30-5.90) m/uL Hgb 10.8 L (13.0-17.5) gm/dL Hct 35.3 L (39.0-53.0) % MCHC 30.6 L (31.0-37.0) g/dL Plt Count 458 H (150-450) k/uL Lymphocytes # 0.7 L (1.0-4.8) k/uL Sodium 135 L (137-145) mmol/L Potassium 3.4 L (3.5-5.1) mmol/L Creatinine 0.46 L (0.66-1.25) mg/dL Calcium 8.1 L (8.4-10.2) mg/dL AST 149 H (17-59) U/L ALT 147 H (4-49) U/L Total Protein 5.5 L (6.3-8.2) g/dL Albumin 3.0 L (3.5-5.0) g/dL
[2024-02-10] MEDS: POTASSIUM CHLORIDE ER 20 MEQ TAB.ER PO STA (16:50)
[2024-02-10] MEDS: FUROSEMIDE 10 MG/ML 4 ML VIAL IV SCH (18:19)
[2024-02-10] MEDS: APIXABAN 5 MG TAB PO SCH (20:00)
[2024-02-10] MEDS: IPRATROPIUM-ALBUTEROL 3 ML NEB INHALATION SCH (20:22)
[2024-02-10] MEDS: BUDESONIDE 0.5 MG/2 ML NEBU INHALATION SCH (20:22)
[2024-02-11] MEDS: TEMAZEPAM 7.5 MG CAP PO PRN (01:45)
[2024-02-11] MEDS: NITROGLYCERIN OINT 1 INCH/GM PACKET TOPICAL SCH (01:46)
[2024-02-11] MEDS: LEVOTHYROXINE 125 MCG TAB PO SCH (06:11)
[2024-02-11] MEDS ORDERED: LEVOTHYROXINE 100 MCG TAB PO SCH (06:30)
[2024-02-11 09:07] LABS: Chol/HDL Ratio 4.23 Ratio; LDL Cholesterol,Calculated 107.4 mg/dL (0.0-131.0); VLDL Calculation 15.54 mg/dL (5.00-40.00)
[2024-02-11] MEDS: ASPIRIN 325 MG TAB PO SCH (09:44)
--- NOTE | 2024-02-11 14:11 | CONS ---
CONSULTATION CHIEF COMPLAINT: Chest pain. HISTORY OF PRESENT ILLNESS: This is a 68-year-old gentleman with history of COPD on home O2 and hypothyroidism, who presented to hospital, complaining of chest pain. His chest discomfort is sharp, mild intensity, left-sided without definite radiation to neck, arm, or back. His EKG revealed sinus bradycardia with nonspecific ST-T wave changes. A chest x-ray showed bilateral pleural effusions. The patient was in the hospital recently and had significant mediastinal lymphadenopathy and had been evaluated by cardiothoracic surgeon and opted not to undergo biopsy or any surgery for it at that time. At the time of my evaluation, he appears comfortable at rest. Chest pain has resolved. EKG does not reveal ischemic changes and cardiac enzymes have been negative. PAST MEDICAL HISTORY: Significant for COPD on home O2 and hypothyroidism. He is also on Eliquis, I am not entirely sure for what reason. FAMILY HISTORY: Negative for premature coronary artery disease. SOCIAL HISTORY: Significant for smoking that he quit in October. Is also significant for ETOH abuse, which he quit at that time. REVIEW OF SYSTEMS: A review of systems has been performed, pertinences are as documented. PHYSICAL EXAMINATION: GENERAL: He appears comfortable at rest. VITAL SIGNS: Stable. Blood pressure is elevated. NECK: There is no jugular venous distention. CHEST: Reveals diminished air entry at the bases. HEART: Reveals first and second heart sounds. No murmur, no rub. ABDOMEN: Soft, nontender. EXTREMITIES: Reveal mild bilateral edema. Peripheral pulses are felt. ASSESSMENT: 1. Atypical chest pain. 2. History of mediastinal lymphadenopathy. 3. COPD. 4. Bilateral pleural effusions, probably related to new-onset congestive heart failure. PLAN: I am going to continue the nebulizers. Obtain a 2D echo. Continue the IV Lasix. Please supplement the potassium as his potassium was low when he first came in and will see why the patient is on Eliquis. MMODL / IJN: [id number] /
--- NOTE | 2024-02-11 17:12 | P.PN ---
Subjective Progress Note Date: 02/11/24 68-year-old male came in with complaints of left-sided chest pain which started today morning. Troponin is negative EKG did not show any acute ST-T wave changes. Patient had a chest x-ray which showed bilateral pleural effusions patient did complain of some shortness of breath denies any orthopnea paroxysmal nocturnal dyspnea patient does not have any peripheral edema. Patient serum sodium is slightly low at 135. Patient took 4 baby aspirin's. Patient's chest pain is nonradiating no associated shortness of breath or lightheadedness. No fever chills. Patient does have cough. Patient does use 4 L of oxygen at home does have history of COPD quit smoking. 02/11/2024 Patient is evaluated today in follow-up resting in the ER pending a bed on the medical floor. is at the bedside. Patient reports quitting smoking recently. He is maintained on 4 L of oxygen which he is currently on with adequate oxygen saturations of 99%. He does report improvement in his shortness of breath. He continues on IV Lasix with an echocardiogram currently pending. BUN of 18 creatinine of 0.46. His troponin level is negative x 3. proBNP was 1030 which is mildly elevated. Review of Systems Constitutional: Denied any fatigue denied any fever. Cardio vascular: denied any chest pain, palpitations Gastrointestinal: denied any nausea, vomiting, diarrhea Pulmonary: Denied any shortness of breath cough Neurologic denied any new focal deficits All inpatient medications were reviewed and appropriate changes in these medications as dictated in the interval history and assessment and plan. PHYSICAL EXAMINATION: GENERAL: The patient is alert and oriented x3, not in any acute distress. Well developed, well nourished. HEENT: Pupils are round and equally reacting to light. EOMI. No scleral icterus. No conjunctival pallor. Normocephalic, atraumatic. No pharyngeal erythema. No thyromegaly. CARDIOVASCULAR: S1 and S2 present. No murmurs, rubs, or gallops. PULMONARY: Chest is clear to auscultation, no wheezing or crackles. ABDOMEN: Soft, nontender, nondistended, normoactive bowel sounds. No palpable organomegaly. MUSCULOSKELETAL: No joint swelling or deformity. EXTREMITIES: No cyanosis, clubbing, or pedal edema. NEUROLOGICAL: Gross neurological examination did not reveal any focal deficits. SKIN: No rashes. Assessment and plan Chest pain will rule out acute coronary syndromes cardiology will evaluate the patient -Bilateral pleural effusions probably congestive heart failure new onset will obtain echocardiogram rule out any BNP patient will be started on IV Lasix, patient with improvement in his shortness of breath and his oxygen saturation is improving. -Shortness of breath probably secondary to bilateral pleural effusions -COPD with mild acute exacerbation patient will be started on inhaled steroids and additional treatments -Chronic hypercapnic respiratory failure uses 4 L of oxygen at home which will be continued Patient is saturating at 98% on 4 L -Transaminitis probably due to hepatic congestion will also obtain ultrasound of the gallbladder along with hepatitis panel and repeat CMP tomorrow -Hypothyroidism DVT prophylaxis: Heparin Continue on IV Lasix patient on strict intake and output monitoring The impression and plan of care has been dictated by Sarah Saeed, Nurse Practitioner as directed. Dr. Belgica MD I have performed a history and physical examination and medical decision making of this patient, discussed the same with the dictator, and agree with the dictators assessment and plan as written, documented as a scribe. Based on total visit time, I have performed more than 50% of this visit. Objective - Vital Signs Vital signs: Vital Signs Temp 98.1 F 02/11/24 16:10 Pulse 101 H 02/11/24 16:11 Resp 18 02/11/24 16:10 BP 114/70 02/11/24 16:10 Pulse Ox 100 02/11/24 16:10 FiO2 Intake & Output 02/10/24 02/11/24 02/11/24 18:59 06:59 18:59 Weight 58.967 kg - Labs CBC & Chem 7: 02/10/24 14:36 02/11/24 09:36 Labs: Abnormal Lab Results - Last 24 Hours (Table) 02/10/24 Range/Units 14:06 HDL Cholesterol 38.10 L (40.00-60.00) mg/dL Assessment and Plan Time with Patient: Less than 30
--- NOTE | 2024-02-11 17:42 | CA ---
Transthoracic Echo Report Name: Trey Lewis Age: 68 Gender: M : 1955 Exam Date: 02/11/2024 14:18 Exam Location: [facility] Ht (in): 72 Wt (lb): 130 Ordering Physician: Juliana Lindo MD Attending/Referring Phys: Solvent Process Extractor Operator Jany Chaudhary RDCS Procedure CPT: Indications: chf Cardiac Hx: Technical Quality: Very technically difficult study Contrast 1: Total Dose (mL): Contrast 2: Total Dose (mL): MEASUREMENTS (Male / Female) Normal Values DOPPLER AV Peak Velocity 99.5 cm/s AV Peak Gradient 4.0 mmHg AV Mean Velocity 75.3 cm/s AV Mean Gradient 2.4 mmHg AV Velocity Time Integral 16.3 cm LVOT Peak Velocity 80.0 cm/s LVOT Peak Gradient 2.6 mmHg LVOT Velocity Time Integral 13.0 cm PV Peak Velocity 127.0 cm/s PV Peak Gradient 6.4 mmHg FINDINGS Left Ventricle Left ventricular ejection fraction is estimated at 55-60 %. Left ventricle not well visualized. No obvious regional wall motion abnormalities. Right Ventricle Normal right ventricular size and function. Unable to estimate the right ventricular systolic pressure. Right Atrium Right atrium not well visualized. Left Atrium Left atrium not well visualized. Mitral Valve Structurally normal mitral valve. No mitral stenosis, regurgitation or prolapse. Aortic Valve Trileaflet aortic valve. No aortic valve stenosis or regurgitation. Tricuspid Valve Tricuspid valve not well visualized. No tricuspid stenosis, regurgitation or prolapse. Pulmonic Valve Pulmonic valve not well visualized. No pulmonic stenosis. No pulmonic regurgitation. Pericardium No pericardial effusion. Aorta Aortic root and proximal ascending aorta not well visualized. CONCLUSIONS Normal LV function Previewed by: Dr. Phuc Serna MD (Electronically Signed) Final Date: 11 February 2024 17:41
[2024-02-12 06:25] LABS: Basophils # (A) 0.1 k/uL (0-0.2); Basophils % (A) 2 %; Eosinophils # (A) 0.2 k/uL (0-0.7); Eosinophils % (A) 4 %; HCT 33.5 % (39.0-53.0); HGB 10.6 gm/dL (13.0-17.5); Lymphocytes # (A) 1.1 k/uL (1.0-4.8); Lymphocytes % (A) 18 %; MCH 30.1 pg (25.0-35.0); MCHC 31.7 g/dL (31.0-37.0); Mean Platelet Volume 7.3; Monocytes # (A) 0.7 k/uL (0-1.0); Monocytes % (A) 11 %; Neutrophils # (A) 3.8 k/uL (1.3-7.7); Neutrophils % (A) 63 %; Platelet Count 385 k/uL (150-450); RBC 3.53 m/uL (4.30-5.90); RDW 15.6 % (11.5-15.5); WBC 6.1 k/uL (3.8-10.6)
[2024-02-12 06:34] LABS: African American GFR (CKD) >90 (>60 ml/min/1.73 sqM); Anion Gap 0 mmol/L; Blood Urea Nitrogen 18 mg/dL (9-20); Calcium 8.3 mg/dL (8.4-10.2); Carbon Dioxide 39 mmol/L (22-30); Chloride 93 mmol/L (98-107); Glucose 90 mg/dL (74-99); Magnesium 1.9 mg/dL (1.6-2.3); Non-African American GFR(CKD) >90 (>60 ml/min/1.73 sqM); Potassium 3.1 mmol/L (3.5-5.1); Sodium 132 mmol/L (137-145)
[2024-02-12 07:45] VITALS: BP 122/78; TEMP 97.4
[2024-02-12] MEDS: POTASSIUM CHLORIDE ER 20 MEQ TAB.ER PO SCH (08:29)
[2024-02-12 10:32] VITALS: RESP 22
--- NOTE | 2024-02-12 10:35 | P.PN ---
Subjective HISTORY OF PRESENT ILLNESS: Patient examined this morning the bedside. Patient currently denies any chest pain or pressure. He denies any shortness of breath. Echocardiogram completed revealing ejection fraction 55 to 60%. Vital signs are stable. PHYSICAL EXAM: VITAL SIGNS: Reviewed. GENERAL: Well-developed in no acute distress. NECK: Supple. No JVD or thyromegaly LUNGS: Respirations even and unlabored. Lungs essentially clear to auscultation bilaterally. HEART: Regular rate and rhythm. S1 and S2 heard. EXTREMITIES: Normal range of motion. No clubbing or cyanosis. Peripheral pulses intact. No lower extremity edema ASSESSMENT: Chest pain, atypical, acute coronary syndrome ruled out History of mediastinal lymphadenopathy, declining biopsy/surgery COPD Chronic hypoxic respiratory failure on home oxygen Bilateral pleural effusions New onset heart failure with preserved EF History of right lower extremity DVT, on Eliquis outpatient PLAN: Continue current cardiac medications Discontinue IV Lasix Begin oral Lasix Patient is currently stable from a cardiac standpoint with no further inpatient recommendations We will sign off. Please reconsult if needed. Nurse practitioner note has been reviewed by physician. Signing provider agrees with the documented findings, assessment, and plan of care documented by AUTOMOTIVE GENERAL MANAGER as a scribe. Objective - Vital Signs Vital signs: Vital Signs Temp 97.4 F L 02/12/24 07:00 Pulse 94 02/12/24 09:40 Resp 22 02/12/24 08:00 BP 122/78 02/12/24 07:00 Pulse Ox 96 02/12/24 09:27 FiO2 Intake & Output 02/11/24 02/12/24 02/12/24 18:59 06:59 18:59 Output Total 1100 Balance -1100 Weight 58.967 kg Output: Urine 1100 Other: Voiding Method Urinal Urinal # Voids 3 - Labs CBC & Chem 7: 02/12/24 05:46 02/12/24 05:46 Labs: Abnormal Lab Results - Last 24 Hours (Table) 02/12/24 02/12/24 Range/Units 05:46 05:46 RBC 3.53 L (4.30-5.90) m/uL Hgb 10.6 L (13.0-17.5) gm/dL Hct 33.5 L (39.0-53.0) % RDW 15.6 H (11.5-15.5) % Sodium 132 L (137-145) mmol/L Potassium 3.1 L (3.5-5.1) mmol/L Chloride 93 L (98-107) mmol/L Carbon Dioxide 39 H (22-30) mmol/L Creatinine 0.64 L (0.66-1.25) mg/dL Calcium 8.3 L (8.4-10.2) mg/dL
[2024-02-12 11:54] VITALS: BMI 17.6
[2024-02-12 12:38] VITALS: PULSE 90
--- NOTE | 2024-02-13 06:49 | P.DS ---
Providers Date of admission: 02/12/24 06:51 Attending physician: Jean Wagner MD Primary care physician: Sydnee Sandy Hospital Course: Final Diagnosis -Chest pain due to mild volume overload -Bilateral pleural effusions probably congestive heart failure new onset impro ron with IV lasix -mediastinal lymphadenopathy following with CT surgery outpatient -Shortness of breath probably secondary to bilateral pleural effusions -COPD with mild acute exacerbation patient will be started on inhaled steroids and additional treatments -Chronic hypercapnic respiratory failure uses 4 L of oxygen at home which will be continued Patient is saturating at 98% on 4 L -Transaminitis probably due to hepatic congestion -Hypothyroidism -History of PE on eliquis Discharge Disposition Patient is stable for discharge home. Recommending to follow up with his manager commercial dr Wagner on discharge in 1 to 2 weeks. Recommend to repeat a BMP in 2 to 3 days. Follow up with PCP Dr. Sandy. Hospital Course 68-year-old male came in with complaints of left-sided chest pain. Has history of COPD, hypothyroidism, and known mediastinal lymphadenopathy, PE and he is anticoagulated with eliquis. Troponin is negative EKG did not show any acute ST-T wave changes. Patient had a chest x-ray which showed bilateral pleural effusions patient did complain of some shortness of breath, denies any orthopnea paroxysmal nocturnal dyspnea patient does not have any peripheral edema. Patient serum sodium is slightly low at 135. Patient took 4 baby aspirin's. Patient's chest pain is nonradiating no associated shortness of breath or lightheadedness. No fever chills. Patient does have cough. Patient does use 4 L of oxygen at home does have history of COPD quit smoking about 2 weeks ago. He was admitted with cardiology consultation. Started on IV lasix. Echocardiogram reveals normal LV function. Patient was given IV lasix and his chest pain has resolved and shortness of breath improved. He was cleared by cardiology. We will not recommend to give any lasix on discharge. Patient wears 4L of oxygen chronically his oxygen saturations are 96%. He will be discharged home. Please see medication reconciliation for a list of current medications. Thank you for allowing us to participate in the care of this patient. The impression and plan of care has been dictated by Sarah Saeed, Nurse Practitioner as directed. Dr. Belgica MD I have performed a history and physical examination and medical decision making of this patient, discussed the same with the dictator, and agree with the dictators assessment and plan as written, documented as a scribe. Based on total visit time, I have performed more than 50% of this visit. Patient Condition at Discharge: Fair Plan - Discharge Summary New Discharge Prescriptions: New Potassium Chloride ER [K-Dur 20] 20 meq PO DAILY #30 tab Famotidine [Pepcid] 20 mg PO DAILY #30 tablet Continue Fluticasone/Umeclidin/Vilanter [Trelegy Ellipta 100-62.5-25] 1 puff INHALATION RT-DAILY Apixaban [Eliquis] 5 mg PO DAILY Levothyroxine Sodium [Synthroid] 125 mcg PO DAILY Discharge Medication List Apixaban [Eliquis] 5 mg PO DAILY 02/10/24 [History] Fluticasone/Umeclidin/Vilanter [Trelegy Ellipta 100-62.5-25] 1 puff INHALATION RT-DAILY 02/10/24 [History] Levothyroxine Sodium [Synthroid] 125 mcg PO DAILY 02/10/24 [History] Famotidine [Pepcid] 20 mg PO DAILY #30 tablet 02/12/24 [Rx] Potassium Chloride ER [K-Dur 20] 20 meq PO DAILY #30 tab 02/12/24 [Rx] Follow up Appointment(s)/Referral(s): Ervin Wagner MD [STAFF PHYSICIAN] - 1 Week Sydnee Sandy MD [Primary Care Provider] - 1-2 days Phuc Serna MD [STAFF PHYSICIAN] - 2 Weeks Ambulatory/Diagnostic Orders: Basic Metabolic Panel [LAB.AMB] Time Frame: 3 Days, Location: None Selected Patient Instructions/Handouts: Heart Failure (DC) Discharge Disposition: HOME SELF-CARE
[2024-02-13] MEDS ORDERED: FUROSEMIDE 40 MG TAB PO SCH (09:00)
== END 2024-02-12 13:00 | disposition home or self-care (01) | DRG 291 ==
LOC: EC 14:32 → 6NMEDSUR 15:44 → 1SOBS 02-11 16:20 → OBSVTOIN 02-12 06:51
PROVIDERS: ADMIT Internal Medicine; ATTEND Internal Medicine
DX: I11.0 Hypertensive heart disease with heart failure (principal); I50.31 Acute diastolic (congestive) heart failure; J44.1 Chronic obstructive pulmonary disease with (acute) exacerbation; J96.12 Chronic respiratory failure with hypercapnia; J96.11 Chronic respiratory failure with hypoxia; R74.01 Elevation of levels of liver transaminase levels; R07.89 Other chest pain; Z79.01 Long term (current) use of anticoagulants; E03.9 Hypothyroidism, unspecified; Z79.890 Hormone replacement therapy; K76.1 Chronic passive congestion of liver; K21.9 Gastro-esophageal reflux disease without esophagitis; Z86.711 Personal history of pulmonary embolism; Z86.718 Personal history of other venous thrombosis and embolism; Z99.81 Dependence on supplemental oxygen; Z87.891 Personal history of nicotine dependence
CPT/HCPCS: 36415; 71046; 80048; 80053; 80061; 83735; 83880; 84132; 84484; 85025; 85610; 85730; 93005; 93306; 94640; 94760; 96374; 96376; 99285

== ENCOUNTER 2024-02-12 20:27 | Observation (INO) | payer MEDICARE ==
[2024-02-12 21:10] LABS: Basophils # (A) 0.1 k/uL (0-0.2); Basophils % (A) 1 %; Eosinophils # (A) 0.1 k/uL (0-0.7); Eosinophils % (A) 1 %; HCT 34.9 % (39.0-53.0); HGB 11.2 gm/dL (13.0-17.5); Lymphocytes # (A) 1.1 k/uL (1.0-4.8); Lymphocytes % (A) 12 %; MCH 30.1 pg (25.0-35.0); MCV 94.1 fL (80.0-100.0); Mean Platelet Volume 7.7; Monocytes # (A) 0.8 k/uL (0-1.0); Monocytes % (A) 10 %; Neutrophils # (A) 6.2 k/uL (1.3-7.7); Neutrophils % (A) 74 %; Platelet Count 427 k/uL (150-450); RBC 3.71 m/uL (4.30-5.90); RDW 15.7 % (11.5-15.5); WBC 8.5 k/uL (3.8-10.6)
[2024-02-12 21:13] LABS: INR 1.2 (<1.2); Prothrombin Time 12.5 sec (10.0-12.5)
[2024-02-12 21:17] LABS: ALT 147 U/L (4-49); AST 209 U/L (17-59); African American GFR (CKD) >90 (>60 ml/min/1.73 sqM); Albumin 3.4 g/dL (3.5-5.0); Alcohol <10 mg/dL; Alkaline Phosphatase 108 U/L (38-126); Anion Gap 2 mmol/L; Blood Urea Nitrogen 27 mg/dL (9-20); Calcium 8.5 mg/dL (8.4-10.2); Carbon Dioxide 35 mmol/L (22-30); Chloride 94 mmol/L (98-107); Glucose 109 mg/dL (74-99); Non-African American GFR(CKD) >90 (>60 ml/min/1.73 sqM); Potassium 4.8 mmol/L (3.5-5.1); Sodium 131 mmol/L (137-145); Total Bilirubin 1.2 mg/dL (0.2-1.3); Total Protein 5.9 g/dL (6.3-8.2)
[2024-02-12 22:34] LABS: Glucose,Whole Blood 119 mg/dL (70-110)
--- NOTE | 2024-02-13 00:46 | CT ---
EXAMINATION TYPE: CT brain wo con DATE OF EXAM: 02/13/2024 HISTORY: pt discharged from this facility at approx 1400 today, AMS, lethargic and combative at home near [address] questions. [address] DLP: 1212.9 mGycm. Automated Exposure Control for Dose Reduction was Utilized. TECHNIQUE: CT scan of the head is performed without contrast. COMPARISON: None. FINDINGS: There is no acute intracranial hemorrhage or midline shift identified. There is mild to m oderate diffuse ventricular and sulcal prominence consistent with diffuse age-related cerebral atroph y. There is moderate to severe low-attenuation in the deep and periventricular white matter most lik johnathan consistent with chronic small vessel ischemic change in patient of this age. Mild to moderate muc osal thickening involving the right maxillary sinus. Calcifications or suspected sialoliths in the b ilateral parotid glands are partially imaged . The globes are intact bilaterally. IMPRESSION: No acute intracranial hemorrhage or midline shift. There is [id number] diffuse ag e-related cerebral atrophy and moderate to severe chronic small vessel ischemic change noted.
--- NOTE | 2024-02-13 01:00 | XR ---
EXAMINATION TYPE: XR chest 1V DATE OF EXAM: 02/12/2024 9:22 PM CLINICAL INDICATION:Male, 68 years old with history of altered mental status; [facility] COMPARISON: 02/10/2024 chest x-ray and 11/07/2022 CT chest TECHNIQUE: XR chest 1V Portable AP radiograph of the chest.. FINDINGS: Lines/Tubes/Devices: EKG leads overlie the chest. No indwelling lines are seen. Heart/mediastinum: Cardiomediastinal silhouette is partially obscured but grossly stable as seen. Hea rt size likely normal. Aortic arch calcifications. Pulmonary vascularity: Mildly increased, stable. Lungs/Pleura: Costophrenic angles are obscured and there are bibasilar opacities, findings suggestive of moderate s ize right pleural effusion, smaller left pleural effusion, as well as basilar infiltrates or atelecta sis. An unusual wavelike appearance over the right mid to lower lung is again seen; this appears sandra lar to the exam 2 days ago, but was not present on CT chest 11/07/2022. Musculoskeletal: No evidence of an acute bony abnormality. Mild chronic degenerative changes. IMPRESSION: * Similar appearance of bilateral pleural effusions, right greater than left, and bibasilar opacitie s likely representing edema, atelectasis and/or infection. * Similar additional unusual appearance of the right mid to lower lung zones, potentially due to sca rring/post treatment changes, however other etiologies are not excluded. * Contrast CT of the chest may be of benefit for further delineation of the anatomy.
--- NOTE | 2024-02-13 02:25 | ED ---
Altered Mental Status HPI - General Chief Complaint: Altered Mental Status Stated Complaint: AMS Time Seen by Provider: 02/12/24 20:54 Source: family, EMS, RN notes reviewed Mode of arrival: EMS Limitations: altered mental status - History of Present Illness Initial Comments: 68-year-old male presenting to the ED with complaints of altered mental status. Patient discharged from this facility today after being evaluated for chest pain. Upon return home today, patient's girlfriend states at proximately 4 PM the patient stopped talking and would not communicate. Entirety of the history obtained from the patient's girlfriend. Patient will not provide any history. - Related Data Home Medications Medication Instructions Recorded Confirmed Apixaban [Eliquis] 5 mg PO DAILY 02/10/24 02/10/24 Fluticasone/Umeclidin/Vilanter 1 puff INHALATION RT-DAILY 02/10/24 02/10/24 [Trelegy Ellipta 100-62.5-25] Levothyroxine Sodium [Synthroid] 125 mcg PO DAILY 02/10/24 02/10/24 Previous Rx's Medication Instructions Recorded Famotidine [Pepcid] 20 mg PO DAILY #30 tablet 02/12/24 Potassium Chloride ER [K-Dur 20] 20 meq PO DAILY #30 tab 02/12/24 Allergies Allergy/AdvReac Type Severity Reaction Status Date / Time No Known Allergies Allergy Verified 02/12/24 20:36 Review of Systems ROS Statement: Those systems with pertinent positive or pertinent negative responses have been documented in the HPI. ROS Other: All systems not noted in ROS Statement are negative. Past Medical History Past Medical History: COPD Additional Past Medical History / Comment(s): pvd History of Any Multi-Drug Resistant Organisms: None Reported Additional Past Surgical History / Comment(s): bypass in legs Past Psychological History: No Psychological Hx Reported Smoking Status: Former smoker Past Alcohol Use History: Daily Past Drug Use History: None Reported General Exam Limitations: altered mental status General appearance: in no apparent distress Eye exam: Present: normal appearance Neck exam: Present: normal inspection Extremities exam: Present: normal inspection Back exam: Present: normal inspection Psychiatric exam: Present: agitated, other (Upon attempting to examine the pa tient, patient tried to punch me when I put the stethoscope on his chest and said " get the fuck off me" ) Skin exam: Present: warm, dry Course Vital Signs 02/12/24 02/12/24 02/13/24 20:29 22:50 01:29 Temperature 97.9 F Pulse Rate 82 68 65 Respiratory 30 H 18 19 Rate Blood Pressure 139/93 140/89 135/82 O2 Sat by Pulse 90 L 96 92 L Oximetry Medical Decision Making - Medical Decision Making Was pt. sent in by a medical professional or institution (, PA, BOX BLANK MACHINE OPERATOR HELPER, urgent care, hospital, or care home...) When possible be specific @ -No Did you speak to anyone other than the patient for history (EMS, parent, family, police, friend...)? What history was obtained from this source @ -Spoke to patient's girlfriend who provided the entirety of the history. For further details please see HPI. Did you review nursing and triage notes (agree or disagree)? Why? @ -I reviewed and agree with nursing and triage notes Were old charts reviewed (outside hosp., previous admission, EMS record, old EKG, old radiological studies, urgent care reports/EKG's, care home records)? Report findings @ -Prior chart review showing patient was just discharged here today. Differential Diagnosis (chest pain, altered mental status, abdominal pain women, abdominal pain men, vaginal bleeding, weakness, fever, dyspnea, syncope, headache, dizziness, GI bleed, back pain, seizure, CVA, palpatations, mental hea lth, musculoskeletal)? @ -Differential Altered Mental Status: Hypoglycemia, DKA, hypercapnia, ETOH, overdose, CO poisoning, trauma, myxedema coma, HTN encephalopathy, infection, encephalitis, psychosis, intercranial hemorrhage, hepatic encephalopathy, meningitis, CVA, this is not meant to be an all-inclusive list EKG interpreted by me (3pts min.). @ -None X-rays interpreted by me (1pt min.). @ -Chest x-ray Interpreted me showing similar appearance of bilateral pleural effusions. Similar additional unusual appearance of the right mid to lower lung zones. CT interpreted by me (1pt min.). @ -None done U/S interpreted by me (1pt. min.). @ -None done What testing was considered but not performed or refused? (CT, X-rays, U/S, labs)? Why? @ -None What meds were considered but not given or refused? Why? @ -None Did you discuss the management of the patient with other professionals (professionals i.e. , PA, BOX BLANK MACHINE OPERATOR HELPER, lab, RT, psych nurse, social media marketing manager, graphics artist, teacher, aoc director intelligence officer, casework manager)? Give summary @ -No Was smoking cessation discussed for >3mins.? @ -No Was critical care preformed (if so, how long)? @ -No Were there social determinants of health that impacted care today? How? (Homelessness, low income, unemployed, alcoholism, drug addiction, transportation, low edu. Level, literacy, decrease access to med. care, usp, rehab)? @ -No Was there de-escalation of care discussed even if they declined (Discuss DNR or withdrawal of care, Hospice)? DNR status @ -No What co-morbidities impacted this encounter? (DM, HTN, Smoking, COPD, CAD, Cancer, CVA, ARF, Chemo, Hep., AIDS, mental health diagnosis, sleep apnea, m orbid obesity)? @ -None Was patient admitted / discharged? Hospital course, mention meds given and route, prescriptions, significant lab abnormalities, going to OR and other pertinent info. @ -Admission 68-year-old male recently discharged from this facility today presenting to the ED as upon return home with communicate. Laboratory studies reviewed. CBC largely unremarkable. Chemistry panel largely unremarkable other than transaminitis present from prior visit. Troponin negative downtrending from 0.018-0.017. Alcohol less than 10. Ammonia less than 9. Patient will be ad mitted due to mental status changes with consults neurology. Undiagnosed new problem with uncertain prognosis? @ -No Drug Therapy requiring intensive monitoring for toxicity (Heparin, Nitro, Insulin, Cardizem)? @ -No Were any procedures done? @ -No Diagnosis/symptom? @ -Altered mental status Acute, or Chronic, or Acute on Chronic? @ -Acute Uncomplicated (without systemic symptoms) or Complicated (systemic symptoms)? @ -Uncomplicated Side effects of treatment? @ -No Exacerbation, Progression, or Severe Exacerbation? @ -No Poses a threat to life or bodily function? How? (Chest pain, [place], [place], pneumonia, PE, COPD, DKA, ARF, appy, cholecystitis, CVA, Diverticulitis, Homicidal, Suicidal, threat to staff... and all critical care pts) @ -No - Lab Data Result diagrams: 02/12/24 20:55 02/12/24 20:55 Lab Results 02/12/24 02/12/24 02/12/24 Range/Units 20:55 20:55 20:55 WBC 8.5 (3.8-10.6) k/uL RBC 3.71 L (4.30-5.90) m/uL Hgb 11.2 L (13.0-17.5) gm/dL Hct 34.9 L (39.0-53.0) % MCV 94.1 (80.0-100.0) fL MCH 30.1 (25.0-35.0) pg MCHC 32.0 (31.0-37.0) g/dL RDW 15.7 H (11.5-15.5) % Plt Count 427 (150-450) k/uL MPV 7.7 Neutrophils % 74 % Lymphocytes % 12 % Monocytes % 10 % Eosinophils % 1 % Basophils % 1 % Neutrophils # 6.2 (1.3-7.7) k/uL Lymphocytes # 1.1 (1.0-4.8) k/uL Monocytes # 0.8 (0-1.0) k/uL Eosinophils # 0.1 (0-0.7) k/uL Basophils # 0.1 (0-0.2) k/uL PT 12.5 (10.0-12.5) sec INR 1.2 H (<1.2) APTT 26.0 (22.0-30.0) sec Sodium 131 L (137-145) mmol/L Potassium 4.8 (3.5-5.1) mmol/L Chloride 94 L (98-107) mmol/L Carbon Dioxide 35 H (22-30) mmol/L Anion Gap 2 mmol/L BUN 27 H (9-20) mg/dL Creatinine 0.72 (0.66-1.25) mg/dL Est GFR (CKD-EPI)AfAm >90 (>60 ml/min/1.73 sqM) Est GFR (CKD-EPI)NonAf >90 (>60 ml/min/1.73 sqM) Glucose 109 H (74-99) mg/dL POC Glucose (mg/dL) (70-110) mg/dL POC Glu Peer Counselor ID Calcium 8.5 (8.4-10.2) mg/dL Total Bilirubin 1.2 (0.2-1.3) mg/dL AST 209 H (17-59) U/L ALT 147 H (4-49) U/L Alkaline Phosphatase 108 (38-126) U/L Ammonia (<30) umol/L Troponin I (0.000-0.034) ng/mL Total Protein 5.9 L (6.3-8.2) g/dL Albumin 3.4 L (3.5-5.0) g/dL Serum Alcohol <10 mg/dL 02/12/24 02/12/24 02/13/24 Range/Units 20:55 22:33 00:55 WBC (3.8-10.6) k/uL RBC (4.30-5.90) m/uL Hgb (13.0-17.5) gm/dL Hct (39.0-53.0) % MCV (80.0-100.0) fL MCH (25.0-35.0) pg MCHC (31.0-37.0) g/dL RDW (11.5-15.5) % Plt Count (150-450) k/uL MPV Neutrophils % % Lymphocytes % % Monocytes % % Eosinophils % % Basophils % % Neutrophils # (1.3-7.7) k/uL Lymphocytes # (1.0-4.8) k/uL Monocytes # (0-1.0) k/uL Eosinophils # (0-0.7) k/uL Basophils # (0-0.2) k/uL PT (10.0-12.5) sec INR (<1.2) APTT (22.0-30.0) sec Sodium (137-145) mmol/L Potassium (3.5-5.1) mmol/L Chloride (98-107) mmol/L Carbon Dioxide (22-30) mmol/L Anion Gap mmol/L BUN (9-20) mg/dL Creatinine (0.66-1.25) mg/dL Est GFR (CKD-EPI)AfAm (>60 ml/min/1.73 sqM) Est GFR (CKD-EPI)NonAf (>60 ml/min/1.73 sqM) Glucose (74-99) mg/dL POC Glucose (mg/dL) 119 H (70-110) mg/dL POC Glu Peer Counselor ID Josh Kat Calcium (8.4-10.2) mg/dL Total Bilirubin (0.2-1.3) mg/dL AST (17-59) U/L ALT (4-49) U/L Alkaline Phosphatase (38-126) U/L Ammonia <9 (<30) umol/L Troponin I 0.018 (0.000-0.034) ng/mL Total Protein (6.3-8.2) g/dL Albumin (3.5-5.0) g/dL Serum Alcohol mg/dL 02/13/24 Range/Units 00:55 WBC (3.8-10.6) k/uL RBC (4.30-5.90) m/uL Hgb (13.0-17.5) gm/dL Hct (39.0-53.0) % MCV (80.0-100.0) fL MCH (25.0-35.0) pg MCHC (31.0-37.0) g/dL RDW (11.5-15.5) % Plt Count (150-450) k/uL MPV Neutrophils % % Lymphocytes % % Monocytes % % Eosinophils % % Basophils % % Neutrophils # (1.3-7.7) k/uL Lymphocytes # (1.0-4.8) k/uL Monocytes # (0-1.0) k/uL Eosinophils # (0-0.7) k/uL Basophils # (0-0.2) k/uL PT (10.0-12.5) sec INR (<1.2) APTT (22.0-30.0) sec Sodium (137-145) mmol/L Potassium (3.5-5.1) mmol/L Chloride (98-107) mmol/L Carbon Dioxide (22-30) mmol/L Anion Gap mmol/L BUN (9-20) mg/dL Creatinine (0.66-1.25) mg/dL Est GFR (CKD-EPI)AfAm (>60 ml/min/1.73 sqM) Est GFR (CKD-EPI)NonAf (>60 ml/min/1.73 sqM) Glucose (74-99) mg/dL POC Glucose (mg/dL) (70-110) mg/dL POC Glu Peer Counselor ID Calcium (8.4-10.2) mg/dL Total Bilirubin (0.2-1.3) mg/dL AST (17-59) U/L ALT (4-49) U/L Alkaline Phosphatase (38-126) U/L Ammonia (<30) umol/L Troponin I 0.017 (0.000-0.034) ng/mL Total Protein (6.3-8.2) g/dL Albumin (3.5-5.0) g/dL Serum Alcohol mg/dL Disposition Clinical Impression: Altered mental status Disposition: ADMITTED IP TO THIS HOSP Condition: Fair Referrals: Sydnee Sandy MD [Primary Care Provider] - 1-2 days Time of Disposition: 02:00
[2024-02-13] MEDS ORDERED: NALOXONE 0.4 MG/ML 1 ML VIAL IV PRN (02:48)
[2024-02-13] MEDS ORDERED: ONDANSETRON 4 MG/2 ML VIAL IVP PRN (02:48)
--- NOTE | 2024-02-13 13:44 | US ---
EXAMINATION TYPE: US carotid duplex BILAT DATE OF EXAM: 02/13/2024 COMPARISON: NONE CLINICAL INDICATION: Male, 68 years old with history of stroke; TECHNIQUE: Carotid duplex ultrasound examination. Indirect Doppler criteria was utilized. FINDINGS: EXAM MEASUREMENTS: RIGHT: Peak Systolic Velocity (PSV) cm/sec ----- Right CCA: 58.4 ----- Right ICA: 52.7 ----- Right ECA: 53.3 ICA/CCA ratio: 0.9 RIGHT: End Diastole cm/sec ----- Right CCA: 13.5 ----- Right ICA: 14.0 ----- Right ECA: 4.5 LEFT: Peak Systolic Velocity (PSV) cm/sec ----- Left CCA: 57.0 ----- Left ICA: 135.7 ----- Left ECA: 82.1 ICA/CCA ratio: 2.4 LEFT: End Diastole cm/sec ----- Left CCA: 12.5 ----- Left ICA: 29.5 ----- Left ECA: 9.7 VERTEBRALS (direction of flow): Right Vertebral: Antegrade Left Vertebral: Antegrade Rhythm: Normal Left ICA/CCA ratio 2.4 IMPRESSION: * Less than 50% stenosis of the right carotid bifurcation. * 50-69% stenosis of the left carotid bifurcation by peak systolic velocity Criteria for Assigning % of Stenosis / Diameter reduction (Estimation based on the indirect measurements of the internal carotid artery velocities (ICA PSV). 1. Normal (no stenosis)=ICA PSV < 125 cm/s: ratio < 2.0: ICA EDV<40 cm/s. 2. Less than 50% stenosis=ICA PSV < 125 cm/s: ratio < 2.0: ICA EDV<40 cm/s. 3. 50 to 69% stenosis=ICA PSV of 125 to 230 cm/s: ration 2.0 ? 4.0: ICA EDV 40-100 cm/s. 4. Greater than 70% stenosis to near occlusion= ICA PSV > 230 cm/s: ratio > 4.0: ICA EDV > 100 cm/s. 5. Near occlusion= ICA PSV velocities may be low or undetectable: variable ratio and ICA EDV. 6. Total occlusion=unable to detect flow.
[2024-02-13 14:12] VITALS: BMI 17.1
--- NOTE | 2024-02-13 15:20 | P.CNNES ---
History of Present Illness Consult date: 02/13/24 Requesting physician: Josh Lepe Reason for Consult: ams History of Present Illness: This is a 68-year-old gentleman present emergency department because of altered mental status. History is obtained from medical record. Upon seeing the patient he was very agitated and using profanity upon asking him question and s eems irritated that he was being asked questions. He stated that he presents to the hospital because of breathing difficulty. Per the ED note it seems that the patient was discharged from the facility after being evaluated for chest pain and returns yesterday since his girlfriend at 4 PM felt he stopped talking and would not communicate but he denies that. Some of the workup during this hospital visit consisted of: AST of 209 ALT of 147 Ammonia level is less than 9 Sodium is 131 Serum glucose is 109 Calcium is 8.5. Urine alcohol level is less than 10 CT of the head is reported as no acute intracranial hemorrhage or midline shift. There is mild to moderate diffuse age-related cerebral atrophy and moderate to severe chronic small vessel ischemic changes noted. I personally reviewed the CT and I agree with the report and I felt the patient had lacunar stroke over the right basal ganglia and thalamus that seems old. Review of Systems Limited but the positive and negative as per HPI. Past Medical History Past Medical History: COPD Additional Past Medical History / Comment(s): pvd History of Any Multi-Drug Resistant Organisms: None Reported Additional Past Surgical History / Comment(s): bypass in legs Past Psychological History: No Psychological Hx Reported Smoking Status: Former smoker Past Alcohol Use History: Daily Past Drug Use History: None Reported Medications and Allergies Home Medications Medication Instructions Recorded Confirmed Type Apixaban [Eliquis] 5 mg PO DAILY 02/10/24 02/13/24 History Fluticasone/Umeclidin/Vilanter 1 puff INHALATION RT-DAILY 02/10/24 02/13/24 H istory [Trelegy Ellipta 100-62.5-25] Levothyroxine Sodium [Synthroid] 125 mcg PO DAILY 02/10/24 02/13/24 History Famotidine [Pepcid] 20 mg PO DAILY 02/13/24 02/13/24 History Potassium Chloride ER [K-Dur 20] 20 meq PO DAILY 02/13/24 02/13/24 History Allergies Allergy/AdvReac Type Severity Reaction Status Date / Time No Known Allergies Allergy Verified 02/13/24 11:25 Physical Examination - Vital Signs Vital Signs: Vital Signs Temp Pulse Resp BP Pulse Ox 02/13/24 10:44 50 L 18 145/77 98 02/13/24 09:25 98.0 F 53 L 16 145/77 99 02/13/24 06:14 55 L 17 126/79 96 02/13/24 03:08 57 L 14 96 02/13/24 01:29 65 19 135/82 92 L 02/12/24 22:50 68 18 140/89 96 02/12/24 20:29 97.9 F 82 30 H 139/93 90 L Intake and Output 02/13/24 02/13/24 02/13/24 06:59 14:59 22:59 Other: Weight 58.967 kg General: Lying in bed and does not appear in acute distress. Neuro: Limited because of his cooperation and he was agitated and did not want to be bothered with this examination. But from limited examination he is oriented to self time and he stated he is in the hospital. He was able to correctly state he is in the [facility]. No facial weakness. No dysarthria. Then he stopped and stated "What the F--K are we doing". Results - Laboratory Findings CBC and BMP: 02/12/24 20:55 02/12/24 20:55 Abnormal Lab Findings: Abnormal Labs 02/12/24 02/12/24 02/12/24 20:55 20:55 20:55 RBC 3.71 L Hgb 11.2 L Hct 34.9 L RDW 15.7 H INR 1.2 H Sodium 131 L Chloride 94 L Carbon Dioxide 35 H BUN 27 H Glucose 109 H POC Glucose (mg/dL) AST 209 H ALT 147 H Total Protein 5.9 L Albumin 3.4 L 02/12/24 22:33 RBC Hgb Hct RDW INR Sodium Chloride Carbon Dioxide BUN Glucose POC Glucose (mg/dL) 119 H AST ALT Total Protein Albumin Assessment and Plan Assessment: This is a 68-year-old gentleman who presents to the emergency department for altered mental status. It seems his girlfriend yesterday at 4 PM felt he stopped talking and would not communicate. Today patient is agitated using profanity and does not want to pursue with examination and according to the nurse he has been noncompliant to her as well. Mental status seems more metabolic. Elevated liver function AST more than ALT slight mildly low sodium of 131 unsure if patient has history of alcohol use and goingthrough withdraw. Mild transaminitis Mild hyponatremia Likely lacunar stroke that seems old over the right basal ganglia/thalamus due to chronic microvascular disease Plan: I ordered a routine EEG. Ordered carotid duplex as well as MRI of the brain. The patient and nurse stated that she is unable to get information regarding the MRI because of his cooperation Ordered TSH, vitamin B12, folate. Continue neurochecks Placed the patient on thiamine 100 mg daily Will defer the rest of the medical management to primary team Plan discussed with the patient's nurse Thank for the consultation ADDENDUM: EEG is not performed since patient cooperation. Time with Patient: Greater than 30
--- NOTE | 2024-02-13 15:37 | P.HPIM ---
History of Present Illness H&P Date: 02/13/24 This is a 68-year-old male who was recently hospitalized and discharged yesterday after having some chest pain and noted to have bilateral pleural effusions with some shortness of breath. Patient had some electrolyte abnormalities along with low sodium and maintained on his chronic oxygen of 4 L with history of COPD. Patient was evaluated by cardiology and underwent 2D echo showing an EF of 55 to 60% and was diuresing on IV Lasix. Patient's girlfriend at the bedside reports he sees Dr. Sandy in the outpatient setting with a past medical history of peripheral vascular disease, COPD, and recently has quit smoking. Patient is a daily drinker. Patient's girlfriend at the bedside reports he has not even finished a can of beer in over the last week. Patient had been instructed to follow-up with pulmonary Dr. Wagner in the outpatient setting and had been discharged home. Per girlfriend, patient went home was fine for a few hours and then she came back and checked on him and he was unres ponsive and not speaking but was awake. She called 911 and patient was brought to the hospital by EMS with altered mentation and she reports he stopped talking. Patient with no significant abnormalities noted on labs and CT of the brain was negative other than mild to moderate diffuse age-related cerebral atrophy and moderate to severe chronic small vessel ischemic change. EKG was sinus rhythm. Patient was admitted with neurology for evaluation REVIEW OF SYSTEMS: Unable to completely assess as patient is not talking and remains nonverbal The rest of the 14-point review of systems is negative. PHYSICAL EXAMINATION: GENERAL: The patient is alert and oriented x1, does not appear in any acute distress although is nonverbal at this time. Thin built, elderly appearing, unkempt HEENT: Pupils are round and equally reacting to light. EOMI. No scleral icterus. No conjunctival pallor. Normocephalic, atraumatic. No pharyngeal erythema. No thyromegaly. CARDIOVASCULAR: S1 and S2 muffled PULMONARY: Diminished breath sounds bilaterally otherwise chest is clear to auscultation, with some faint crackles noted at the bases. ABDOMEN: Soft, thin nontender, nondistended, normoactive bowel sounds. No palpable organomegaly. MUSCULOSKELETAL: No joint swelling or deformity. EXTREMITIES: No cyanosis, clubbing, or pedal edema. NEUROLOGICAL: Gross neurological examination did not reveal any focal deficits. Diffuse weakness SKIN: No rashes. Assessment: Acute altered mental status, likely acute metabolic encephalopathy Daily alcohol use with concerns of acute alcohol withdrawal and delirium tremens Transaminitis likely secondary to hepatic congestion History of hypothyroidism Recent hospitalization yesterday for shortness of breath with volume overload noted to have bilateral pleural effusions with concerns of new onset congestive heart failure Mediastinal lymphadenopathy following with CT surgery outpatient COPD, not in exacerbation chronic hypoxic respiratory failure, wears 4 L outpatient History of PE, maintained on Eliquis Moderate protein calorie malnutrition with a BMI of 17.2 Recently quit smoking GI prophylaxis DVT prophylaxis Full code Plan: Patient was admitted for altered mental status CT of the brain was negative and carotid Dopplers along with EEG and MRI were ordered per neurology although patient is not being cooperative and refusing these testings Will review and resume appropriate home medications Girlfriend at the bedside reports he has not been drinking much and only drank a few sips out of the can of beer yesterday after being discharged from the hospital and had not had a drink in a few days since prior to 3 days ago when being hospitalized Patient is agitated and anxious and adamant about refusing testing with some continued confusion, will consult psychiatry and appreciate input and recommendations Follow-up on repeat labs and monitor LFTs Recommend PT/OT therapy evaluation The impression and plan of care has been dictated by Chaparrita Romero, Nurse Practitioner as directed. Dr. Belgica MD I have performed a history and examination and MDM of this patient, discussed the same with the dictator, and agree with the dictator's assessment and plan as written ,documented as a scribe. Based on total visit time, I have performed more than 50% of the visit. Past Medical History Past Medical History: COPD Additional Past Medical History / Comment(s): pvd History of Any Multi-Drug Resistant Organisms: None Reported Additional Past Surgical History / Comment(s): bypass in legs Past Psychological History: No Psychological Hx Reported Smoking Status: Former smoker Past Alcohol Use History: Daily Past Drug Use History: None Reported Medications and Allergies Home Medications Medication Instructions Recorded Confirmed Type Apixaban [Eliquis] 5 mg PO DAILY 02/10/24 02/13/24 History Fluticasone/Umeclidin/Vilanter 1 puff INHALATION RT-DAILY 02/10/24 02/13/24 History [Trelegy Ellipta 100-62.5-25] Levothyroxine Sodium [Synthroid] 125 mcg PO DAILY 02/10/24 02/13/24 History Famotidine [Pepcid] 20 mg PO DAILY 02/13/24 02/13/24 History Potassium Chloride ER [K-Dur 20] 20 meq PO DAILY 02/13/24 02/13/24 History Allergies Allergy/AdvReac Type Severity Reaction Status Date / Time No Known Allergies Allergy Verified 02/13/24 11:25 Physical Exam Vitals: Vital Signs Temp Pulse Resp BP Pulse Ox 02/13/24 10:44 50 L 18 145/77 98 02/13/24 09:25 98.0 F 53 L 16 145/77 99 02/13/24 06:14 55 L 17 126/79 96 02/13/24 03:08 57 L 14 96 02/13/24 01:29 65 19 135/82 92 L 02/12/24 22:50 68 18 140/89 96 02/12/24 20:29 97.9 F 82 30 H 139/93 90 L Intake and Output 02/12/24 02/13/24 02/13/24 22:59 06:59 14:59 Other: Weight 58.967 kg Results CBC & Chem 7: 02/12/24 20:55 02/12/24 20:55 Labs: Abnormal Lab Results - Last 24 Hours (Table) 02/12/24 02/12/24 02/12/24 Range/Units 20:55 20:55 20:55 RBC 3.71 L (4.30-5.90) m/uL Hgb 11.2 L (13.0-17.5) gm/dL Hct 34.9 L (39.0-53.0) % RDW 15.7 H (11.5-15.5) % INR 1.2 H (<1.2) Sodium 131 L (137-145) mmol/L Chloride 94 L (98-107) mmol/L Carbon Dioxide 35 H (22-30) mmol/L BUN 27 H (9-20) mg/dL Glucose 109 H (74-99) mg/dL POC Glucose (mg/dL) (70-110) mg/dL AST 209 H (17-59) U/L ALT 147 H (4-49) U/L Total Protein 5.9 L (6.3-8.2) g/dL Albumin 3.4 L (3.5-5.0) g/dL 02/12/24 Range/Units 22:33 RBC (4.30-5.90) m/uL Hgb (13.0-17.5) gm/dL Hct (39.0-53.0) % RDW (11.5-15.5) % INR (<1.2) Sodium (137-145) mmol/L Chloride (98-107) mmol/L Carbon Dioxide (22-30) mmol/L BUN (9-20) mg/dL Glucose (74-99) mg/dL POC Glucose (mg/dL) 119 H (70-110) mg/dL AST (17-59) U/L ALT (4-49) U/L Total Protein (6.3-8.2) g/dL Albumin (3.5-5.0) g/dL Thrombosis Risk Factor Assmnt - DVT/VTE Prophylaxis DVT/VTE Prophylaxis: Pharmacologic Prophylaxis ordered Assessment and Plan Time with Patient: Greater than 30
[2024-02-13] MEDS: THIAMINE 100 MG TAB PO SCH (16:44)
[2024-02-13] MEDS: APIXABAN 5 MG TAB PO SCH (16:44)
[2024-02-13] MEDS: FAMOTIDINE 20 MG TAB PO SCH (16:44)
[2024-02-14] MEDS: LEVOTHYROXINE 125 MCG TAB PO SCH (06:42)
[2024-02-14 08:12] VITALS: BP 132/70; RESP 16; TEMP 98.3
[2024-02-14] MEDS: SYMBICORT 80-4.5 MCG INHALER INHALATION SCH (09:08)
[2024-02-14] MEDS: IPRATROPIUM 0.5 MG/2.5 ML NEBU INHALATION SCH (09:08)
--- NOTE | 2024-02-14 14:16 | CT ---
EXAMINATION TYPE: CT angio neck DATE OF EXAM: 02/14/2024 HISTORY: carotid stenosis COMPARISON: None CT DLP: 271 mGycm. Automated Exposure Control for Dose Reduction was Utilized. TECHNIQUE: CTA scan of the head and neck is performed with IV Contrast, patient injected with 65 mL of Isovue 370, axial images are obtained, coronal and sagittal reformatted images are reviewed. 3D re constructed images are created on an independent workstation and reviewed. FINDINGS: There are scattered calcifications of the brachiocephalic origins but no significant stenosis. There are marked calcified plaques involving the carotid bifurcations bilaterally resulting in a adelia re greater than 70% stenosis of the left internal carotid artery, moderate to severe stenosis of the distal left common carotid artery, and moderate stenoses of the distal right common and proximal righ t internal carotid arteries. There is moderate calcifications of the carotid siphons. Note is made of marked emphysematous changes in the visualized upper lung zones with a large right pl eural effusion and a moderate to large left pleural effusion. IMPRESSION: 1. Hemodynamically significant stenoses of the left internal and distal left common carotid arteries. 2. Moderate stenoses of the right carotid bifurcation and proximal internal carotid artery. 3. Moderate calcifications in carotid siphons. 4. Marked emphysematous changes in the visualized upper lung kearney in a large right pleural effusion and a moderate to possibly large left pleural effusion.
[2024-02-14] MEDS: ALPRAZolam 0.25 MG TAB PO STA (15:31)
--- NOTE | 2024-02-14 15:41 | P.PN ---
Subjective Progress Note Date: 02/14/24 I am following-up with patient and he is accompanied with his significant other who states he was confused and not as responsive and that is what brought him to come to hospital. Objective - Vital Signs Vital signs: Vital Signs Temp 98.3 F 02/14/24 07:00 Pulse 61 02/14/24 12:37 Resp 16 02/14/24 07:00 BP 132/70 02/14/24 07:00 Pulse Ox 97 02/14/24 09:08 FiO2 Intake & Output 02/13/24 02/14/24 02/14/24 18:59 06:59 18:59 Intake Total 250 472 Output Total 200 Balance 250 -200 472 Weight 58.967 kg Intake: Oral 250 472 Output: Urine 200 Other: Voiding Method Toilet Urinal # Voids 1 1 # Bowel Movements 1 - Exam General: Lying in bed and is not acute distress. Neuro: Limited again because of cooperation and showing resistance following commands. The patient is oriented to self, time and stated he was in hospital. Is following few simple commands. No aphasia from limited language. No facial weakness. No dysarthria. Some of the workup during this hospital visit consisted of: AST of 209 ALT of 147 Ammonia level is less than 9 Sodium is 131 Serum glucose is 109 Calcium is 8.5. TSH is 12.10 Free T4 is 1.40 B12 is 499 Folate is 11.3. Urine alcohol level is less than 10 CT of the head is reported as no acute intracranial hemorrhage or midline shift. There is mild to moderate diffuse age-related cerebral atrophy and moderate to severe chronic small vessel ischemic changes noted. I personally reviewed the CT and I agree with the report and I felt the patient had lacunar stroke over the right basal ganglia and thalamus that seems old. Carotid duplex is reported as less than 50% stenosis of the right carotid bifurcation. 50-69 stenosis of the left carotid bifurcation by peak systolic velocity. - Labs CBC & Chem 7: 02/12/24 20:55 02/12/24 20:55 Labs: Abnormal Lab Results - Last 24 Hours (Table) 02/13/24 Range/Units 01:55 TSH 12.100 H (0.350-5.500) UIU/ML Assessment and Plan Assessment: This is a 68-year-old gentleman who presents to the emergency department for altered mental status. It seems his girlfriend yesterday at 4 PM felt he stopped talking and would not communicate. Today patient is agitated using profanity and does not want to pursue with examination and according to the nurse he has been noncompliant to her as well. Mental status seems more metabolic encephalopathy. Elevated liver function AST more than ALT slight mildly low sodium of 131 unsure if patient has history of alcohol use and goingthrough withdraw. Left ICA stenosis 50-69% on duplex. Mild transaminitis Mild hyponatremia Likely lacunar stroke that seems old over the right basal ganglia/thalamus due to chronic microvascular disease Plan: Will reodered routine EEG and his significant other states he will comply for it today for carotid stenosis on left will get CTA to assess if truly stenosis. And if significant recommend vascular surgery consult. Pending MRI Brain. Continue neurochecks Placed the patient on thiamine 100 mg daily Will defer the rest of the medical management to primary team Plan discussed with the patient, and his significant other who is at bedside. ADDENDUM: I was updated by the Primary team N.P. that patient was argumentative and using profanity when the primary attending was evaluating him. Time with Patient: Less than 30
[2024-02-14 16:37] VITALS: PULSE 65
--- NOTE | 2024-02-14 16:52 | P.CN ---
Psychiatric Consult - . Consult date: 02/14/24 Consult:: 02/14/24 16:49 CONSULTATION Reason for consult: Evaluation of MS History of present illness: The patient noted that he was upset and lost temper for being accused of drinking. He was given Xanax with good results. . The pa blake noted that he has not had any beer for 3 days. His significant other, who was in the room confirmed it. She noted that the patient stopped smoking weed and curtailed drinking since October,.. He drinks half a cup of beer a day. She controls his beer consumption. On leading questions denied depression, anxiety, hopelessness, worthlessness, suicidal or homicidal ideations. The patient denied to any symptoms of paranoia, or any other delusional thinking, A/V hallucinations. He denied being angry, irritable, or agitated. Current and past psychiatric medications: No psychiatric medications. Out-pt follow-up: Never History of past psychiatric illness: none. No other than stated in HPI. No history of suicidal or homicidal ideations or behavior. Past medical history: As per EMR Substance abuse history: As per patient past h/o alcohol and weed abuse. Family history of psychiatric disorder: None. MSE: Alert and attentive Orientation X3. Pleasant and cooperative. Psychomotor activity: Speech: Normal tone, quality, and quantity Mood: Fine. Affect: Appropriate. SI or HI: None Thought content: Normal Thought process: Normal Perceptual disturbance: Normal Cognition: Intact Judgement and Insight: Intact Diagnosis: No acute psychopathology noted. Plan: The patient is psychiatrically stable at this time. Shiva Mckinley MD Psychiatry
== END 2024-02-14 17:03 | disposition home or self-care (01) ==
LOC: EC 20:27 → 6NMEDSUR 02-13 02:54
PROVIDERS: ADMIT Internal Medicine; ATTEND Internal Medicine
DX: R41.82 Altered mental status, unspecified (principal); I65.22 Occlusion and stenosis of left carotid artery; J44.9 Chronic obstructive pulmonary disease, unspecified; R79.89 Other specified abnormal findings of blood chemistry; R74.01 Elevation of levels of liver transaminase levels; E87.1 Hypo-osmolality and hyponatremia; E03.9 Hypothyroidism, unspecified; F10.10 Alcohol abuse, uncomplicated; Y90.0 Blood alcohol level of less than 20 mg/100 ml; R59.0 Localized enlarged lymph nodes; J96.11 Chronic respiratory failure with hypoxia; E44.0 Moderate protein-calorie malnutrition; Z68.1 Body mass index [BMI] 19.9 or less, adult; Z86.711 Personal history of pulmonary embolism; Z87.891 Personal history of nicotine dependence; Z99.81 Dependence on supplemental oxygen; Z79.01 Long term (current) use of anticoagulants; Z79.890 Hormone replacement therapy; Z79.51 Long term (current) use of inhaled steroids; Z79.899 Other long term (current) drug therapy
CPT/HCPCS: 99285; 36415 ×2; 94640 ×2; 94760; 93005; 97162; 84439; 80053; 84443; 82607; 82140; 82746; 84484 ×2; 85025; 85610; 85730; 71045; 93880; 70450; 70498; G0378 ×2; G0480; Q9967; 80320

== ENCOUNTER 2024-05-20 18:00 | Observation (INO) | payer MEDICARE ==
--- NOTE | 2024-05-20 18:22 | ED ---
Extremity Problem HPI - General Chief complaint: Extremity Problem,Nontraumatic Stated complaint: Poss DVT Time Seen by Provider: 05/20/24 18:15 Source: patient, EMS, RN notes reviewed, old records reviewed Mode of arrival: EMS Limitations: no limitations - History of Present Illness Initial comments: This is a 60-year-old male to the ER for evaluation of generalized weakness but complaining of right lower extremity pain, states patient does appear to be doing unwell overall. Patient's main complaint is right leg pain right leg swelling concern for DVT, patient has history of DVT currently on Eliquis Complaint: extremity pain, extremity swelling -: hour(s) Location: right, lower extremity Radiation: proximal Severity scale (1-10): 7 Quality: aching Consistency: constant Improves with: nothing Worsens with: nothing Associated Symptoms: denies other symptoms, shortness of breath - Related Data Home Medications Medication Instructions Recorded Confirmed Apixaban [Eliquis] 5 mg PO BID 02/10/24 05/20/24 Fluticasone/Umeclidin/Vilanter 1 puff INHALATION RT-DAILY 02/10/24 05/20/24 [Trelegy Ellipta 100-62.5-25] Potassium Chloride ER [K-Dur 20] 20 meq PO DAILY 02/13/24 05/20/24 Levothyroxine Sodium [Synthroid] 150 mcg PO DAILY 05/20/24 05/20/24 Previous Rx's Medication Instructions Recorded Thiamine [Vitamin B-1] 100 mg PO DAILY #30 tab 02/14/24 Allergies Allergy/AdvReac Type Severity Reaction Status Date / Time No Known Allergies Allergy Verified 05/20/24 18:43 Review of Systems ROS Statement: Those systems with pertinent positive or pertinent negative responses have been documented in the HPI. ROS Other: All systems not noted in ROS Statement are negative. Past Medical History Past Medical History: COPD, Deep Vein Thrombosis (DVT) Additional Past Medical History / Comment(s): pvd History of Any Multi-Drug Resistant Organisms: None Reported Additional Past Surgical History / Comment(s): bypass in legs Past Psychological History: No Psychological Hx Reported Smoking Status: Current every day smoker, Former smoker, Never smoker Past Alcohol Use History: Daily Past Drug Use History: None Reported - Past Family History Father Additional Family Medical History / Comment(s): " from coal miners lung" Mother History Unknown: Yes General Exam Limitations: no limitations General appearance: alert, in no apparent distress, anxious Head exam: Present: atraumatic, normocephalic, normal inspection Eye exam: Present: normal appearance, PERRL, EOMI. Absent: scleral icterus, conjunctival injection, periorbital swelling ENT exam: Present: normal exam, mucous membranes moist Neck exam: Present: normal inspection. Absent: tenderness, meningismus, lymphadenopathy Respiratory exam: Present: normal lung sounds bilaterally. Absent: respiratory distress, wheezes, rales, rhonchi, stridor Cardiovascular Exam: Present: regular rate, normal rhythm, normal heart sounds. Absent: systolic murmur, diastolic murmur, rubs, gallop, clicks GI/Abdominal exam: Present: soft, normal bowel sounds. Absent: distended, tenderness, guarding, rebound, rigid Extremities exam: Present: normal inspection, full ROM, normal capillary refill. Absent: tenderness, pedal edema, joint swelling, calf tenderness Back exam: Present: normal inspection Neurological exam: Present: alert, oriented X3, CN II-XII intact Psychiatric exam: Present: normal affect, normal mood Skin exam: Present: warm, dry, intact, normal color. Absent: rash Course Vital Signs 05/20/24 05/20/24 05/20/24 18:07 19:48 19:56 Temperature 98 F Pulse Rate 65 56 L 62 Respiratory 24 Rate Blood Pressure 140/96 O2 Sat by Pulse 100 Oximetry 05/20/24 23:05 Temperature 98.2 F Pulse Rate 51 L Respiratory 18 Rate Blood Pressure 130/84 O2 Sat by Pulse 96 Oximetry - Reevaluation(s) Reevaluation #1: 05/20/24 19:20 Medical records are reviewed Reevaluation #2: Symptoms unchanged here in the ER Reevaluation #3: Informed of results and questions answered Reevaluation #4: 05/20/24 19:20 Was pt. sent in by a medical professional or institution (, PA, [facility], urgent care, hospital, or [facility]...) When possible be specific @ -no Did you speak to anyone other than the patient for history (EMS, parent, family, police, friend...)? What history was obtained from this source @ -no Did you review nursing and triage notes (agree or disagree)? Why? @ -agree Are old charts reviewed (outside hosp., previous admission, EMS record, old EKG, old radiological studies, urgent care reports/EKG's, [facility] records)? Report findings @ -yes Differential Diagnosis (chest pain, altered mental status, abdominal pain women, abdominal pain men, vaginal bleeding, weakness, fever, dyspnea, syncope, headache, dizziness, GI bleed, back pain, seizure, CVA, palpatations, mental health, musculoskeletal)? @ -prior EKG interpreted by me (3pts min.). @ -yes X-rays interpreted by me (1pt min.). @ -no CT interpreted by me (1pt min.). @ -no U/S interpreted by me (1pt. min.). @ -yes negative for acute disease What testing was considered but not performed or refused? (CT, X-rays, U/S, labs)? Why? @ -none What meds were considered but not given or refused? Why? @ -none Did you discuss the management of the patient with other professionals (professionals i.e. , PA, [facility], lab, RT, psych nurse, social science professor, refrigeration plant operator, teacher, low altitude air defense officer, case picker)? Give summary @ -no Was smoking cessation discussed for >3mins.? @ -no Was critical care preformed (if so, how long)? @ -no Were there social determinants of health that impacted care today? How? (Homelessness, low income, unemployed, alcoholism, drug addiction, transportation, low edu. Level, literacy, decrease access to med. care, penitentiary, rehab)? @ -none Was there de-escalation of care discussed even if they declined (Discuss DNR or withdrawal of care, Hospice)? DNR status @ -no What co-morbidities impacted this encounter? (DM, HTN, Smoking, COPD, CAD, Cancer, CVA, ARF, Chemo, Hep., AIDS, mental health diagnosis, sleep apnea, morbid obesity)? @ -none Was patient admitted / discharged? Hospital course, mention meds given and route, prescriptions, significant lab abnormalities, going to OR and other pertinent info. @ - 68 male to ER for evaluation of lower extremity foot ulcer and cellulitis. Patient will admit for IV antibiotics Admitted Undiagnosed new problem with uncertain prognosis? @ -no Drug Therapy requiring intensive monitoring for toxicity (Heparin, Nitro, Ins ulin, Cardizem)? @ -no Were any procedures done? @ -no Diagnosis/symptom? @ - foot ulcer with cellulitis Acute, or Chronic, or Acute on Chronic? @ -Acute Uncomplicated (without systemic symptoms) or Complicated (systemic symptoms)? @ -Complicated Side effects of treatment? @ -no Exacerbation, Progression, or Severe Exacerbation? @ -exacerbation Poses a threat to life or bodily function? How? (Chest pain, USA, DC, pneumonia, PE, COPD, DKA, ARF, appy, cholecystitis, CVA, Diverticulitis, Homicidal, Suicidal, threat to staff... and all critical care pts) @ -yes Medical Decision Making - Medical Decision Making 68 male to ER for evaluation of lower extremity foot ulcer and cellulitis. Patient will admit for IV antibiotics - Lab Data Result diagrams: 05/22/24 08:55 05/22/24 08:55 Lab Results 05/20/24 05/20/24 05/20/24 Range/Units 18:54 18:54 18:54 WBC 5.3 (3.8-10.6) k/uL RBC 3.68 L (4.30-5.90) m/uL Hgb 11.3 L (13.0-17.5) gm/dL Hct 36.8 L (39.0-53.0) % MCV 99.8 (80.0-100.0) fL MCH 30.7 (25.0-35.0) pg MCHC 30.8 L (31.0-37.0) g/dL RDW 14.4 (11.5-15.5) % Plt Count 482 H (150-450) k/uL MPV 7.0 Neutrophils % 60 % Lymphocytes % 23 % Monocytes % 10 % Eosinophils % 4 % Basophils % 2 % Neutrophils # 3.2 (1.3-7.7) k/uL Lymphocytes # 1.2 (1.0-4.8) k/uL Monocytes # 0.5 (0-1.0) k/uL Eosinophils # 0.2 (0-0.7) k/uL Basophils # 0.1 (0-0.2) k/uL Hypochromasia Moderate PT 10.9 (10.0-12.5) sec INR 1.0 (<1.2) APTT 24.8 (22.0-30.0) sec Sodium 135 L (137-145) mmol/L Potassium 4.3 (3.5-5.1) mmol/L Chloride 93 L (98-107) mmol/L Carbon Dioxide 34 H (22-30) mmol/L Anion Gap 8 mmol/L BUN 17 (9-20) mg/dL Creatinine 0.58 L (0.66-1.25) mg/dL Est GFR (CKD-EPI)AfAm >90 (>60 ml/min/1.73 sqM) Est GFR (CKD-EPI)NonAf >90 (>60 ml/min/1.73 sqM) Glucose 72 L (74-99) mg/dL Plasma Lactic Acid Russel (0.7-2.0) mmol/L Calcium 9.1 (8.4-10.2) mg/dL Phosphorus 4.6 H (2.5-4.5) mg/dL Magnesium 2.0 (1.6-2.3) mg/dL Total Bilirubin 0.6 (0.2-1.3) mg/dL AST 102 H (17-59) U/L ALT 92 H (4-49) U/L Alkaline Phosphatase 86 (38-126) U/L Troponin I (0.000-0.034) ng/mL NT-Pro-B Natriuret Pep 956 pg/mL Total Protein 6.4 (6.3-8.2) g/dL Albumin 3.5 (3.5-5.0) g/dL 05/20/24 05/20/24 Range/Units 18:54 18:54 WBC (3.8-10.6) k/uL RBC (4.30-5.90) m/uL Hgb (13.0-17.5) gm/dL Hct (39.0-53.0) % MCV (80.0-100.0) fL MCH (25.0-35.0) pg MCHC (31.0-37.0) g/dL RDW (11.5-15.5) % Plt Count (150-450) k/uL MPV Neutrophils % % Lymphocytes % % Monocytes % % Eosinophils % % Basophils % % Neutrophils # (1.3-7.7) k/uL Lymphocytes # (1.0-4.8) k/uL Monocytes # (0-1.0) k/uL Eosinophils # (0-0.7) k/uL Basophils # (0-0.2) k/uL Hypochromasia PT (10.0-12.5) sec INR (<1.2) APTT (22.0-30.0) sec Sodium (137-145) mmol/L Potassium (3.5-5.1) mmol/L Chloride (98-107) mmol/L Carbon Dioxide (22-30) mmol/L Anion Gap mmol/L BUN (9-20) mg/dL Creatinine (0.66-1.25) mg/dL Est GFR (CKD-EPI)AfAm (>60 ml/min/1.73 sqM) Est GFR (CKD-EPI)NonAf (>60 ml/min/1.73 sqM) Glucose (74-99) mg/dL Plasma Lactic Acid Russel 0.9 (0.7-2.0) mmol/L Calcium (8.4-10.2) mg/dL Phosphorus (2.5-4.5) mg/dL Magnesium (1.6-2.3) mg/dL Total Bilirubin (0.2-1.3) mg/dL AST (17-59) U/L ALT (4-49) U/L Alkaline Phosphatase (38-126) U/L Troponin I <0.012 (0.000-0.034) ng/mL NT-Pro-B Natriuret Pep pg/mL Total Protein (6.3-8.2) g/dL Albumin (3.5-5.0) g/dL - EKG Data -: EKG Interpreted by Me (EKG is sinus 60 RI 132 QRS 86 QTc 400) - Radiology Data Radiology results: report reviewed (Ultrasound lower extremity negative for DVT), image reviewed Disposition Clinical Impression: Right leg pain, Ulcer of toe, Weakness Disposition: HOME SELF-CARE Condition: Poor Is patient prescribed a controlled substance at d/c from ED?: No Time of Disposition: 19:30
[2024-05-20] MEDS: SODIUM CHLORIDE 0.9% 1,000 ML IV STA ×2 (19:01)
--- NOTE | 2024-05-20 19:06 | US ---
EXAMINATION TYPE: US venous doppler duplex LE RT DATE OF EXAM: 05/20/2024 6:52 PM COMPARISON: NONE CLINICAL INDICATION: Male, 68 years old with history of dvt; Patient states hx of DVT. Patient is on thinners currently. Swelling for a few weeks. Patient states he has a bypass graft somewhere, unsure of where. SIDE PERFORMED: Right TECHNIQUE: The lower extremity deep venous system is examined utilizing real time linear array sonog khurram with graded compression, doppler sonography and color-flow sonography. VESSELS IMAGED: Common Femoral Vein Deep Femoral Vein Greater Saphenous Vein * Femoral Vein Popliteal Vein Small Saphenous Vein * Proximal Calf Veins (* superficial vessels) Limited due to patient body habitus* Right Leg: Appears negative for DVT as best seen. There is a 4.0cm heterogeneous area seen in the ri t groin. IMPRESSION: 1. Right lower extremity ultrasound negative for deep venous thrombosis. 2. Heterogenous 4 cm mass within the right inguinal region. This is atypical for a lymph node. Additi onal workup is recommended.
[2024-05-20 19:14] LABS: Basophils # (A) 0.1 k/uL (0-0.2); Basophils % (A) 2 %; Eosinophils # (A) 0.2 k/uL (0-0.7); Eosinophils % (A) 4 %; HCT 36.8 % (39.0-53.0); HGB 11.3 gm/dL (13.0-17.5); Hypochromasia Moderate; Lymphocytes # (A) 1.2 k/uL (1.0-4.8); Lymphocytes % (A) 23 %; MCH 30.7 pg (25.0-35.0); MCHC 30.8 g/dL (31.0-37.0); MCV 99.8 fL (80.0-100.0); Monocytes # (A) 0.5 k/uL (0-1.0); Monocytes % (A) 10 %; Neutrophils # (A) 3.2 k/uL (1.3-7.7); Neutrophils % (A) 60 %; Platelet Count 482 k/uL (150-450); RBC 3.68 m/uL (4.30-5.90); RDW 14.4 % (11.5-15.5); WBC 5.3 k/uL (3.8-10.6)
[2024-05-20 19:31] LABS: ALT 92 U/L (4-49); AST 102 U/L (17-59); African American GFR (CKD) >90 (>60 ml/min/1.73 sqM); Albumin 3.5 g/dL (3.5-5.0); Alkaline Phosphatase 86 U/L (38-126); Anion Gap 8 mmol/L; Blood Urea Nitrogen 17 mg/dL (9-20); Calcium 9.1 mg/dL (8.4-10.2); Carbon Dioxide 34 mmol/L (22-30); Chloride 93 mmol/L (98-107); Glucose 72 mg/dL (74-99); Non-African American GFR(CKD) >90 (>60 ml/min/1.73 sqM); Phosphorus 4.6 mg/dL (2.5-4.5); Potassium 4.3 mmol/L (3.5-5.1); Sodium 135 mmol/L (137-145); Total Bilirubin 0.6 mg/dL (0.2-1.3); Total Protein 6.4 g/dL (6.3-8.2)
[2024-05-20] MEDS: methylPREDNISolone SOD SUCCI 125 MG/2 ML VIAL IV STA (19:34)
[2024-05-20 19:36] LABS: Partial Thromboplastin Time 24.8 sec (22.0-30.0); Prothrombin Time 10.9 sec (10.0-12.5)
[2024-05-20 19:38] LABS: NT-Pro-B-Type Natriuretic Pept 956 pg/mL
[2024-05-20] MEDS: IPRATROPIUM-ALBUTEROL 3 ML NEB INHALATION STA (19:47)
[2024-05-20] MEDS ORDERED: NALOXONE 0.4 MG/ML 1 ML VIAL IV PRN (20:16)
[2024-05-20] MEDS ORDERED: ONDANSETRON 4 MG/2 ML VIAL IVP PRN (20:16)
[2024-05-20] MEDS: SODIUM CHLORIDE 0.9% 1,000 ML IV SCH (20:53)
[2024-05-20 23:42] LABS: Appearance,Urine Clear (Clear); Bilirubin,Urine Negative (Negative); Blood,Urine Negative (Negative); Color,Urine Yellow; Glucose,Urine (UA) Negative (Negative); Ketones,Urine Negative (Negative); Leukocyte Esterase,Urine Negative (Negative); Nitrite,Urine Negative (Negative); PH, Urine 5.5 (5.0-8.0); Protein,Urine Trace (Negative); Specific Gravity,Urine 1.021 (1.001-1.035); Urobilinogen,Urine <2.0 mg/dL (<2.0)
[2024-05-21] MEDS: IPRATROPIUM-ALBUTEROL 3 ML NEB INHALATION STA (04:29)
[2024-05-21 04:48] LABS: HCT 35.6 % (39.0-53.0); Hypochromasia Marked; MCH 31.8 pg (25.0-35.0); MCV 102.7 fL (80.0-100.0); Macrocytosis Slight; Mean Platelet Volume 7.4; Platelet Count 400 k/uL (150-450); RBC 3.47 m/uL (4.30-5.90); RDW 14.7 % (11.5-15.5); WBC 3.7 k/uL (3.8-10.6)
[2024-05-21] MEDS: LEVOTHYROXINE 75 MCG TAB PO SCH (06:26)
[2024-05-21 07:33] LABS: Band Neutrophils % 1 %; Lymphocytes # (M) 0.63 k/uL (1.0-4.8); Neutrophils % (M) 82 %; Nucleated Red Blood Cells 0 /100 WBC (0-0); Total Cells Counted 100
[2024-05-21] MEDS: IPRATROPIUM-ALBUTEROL 3 ML NEB INHALATION SCH (07:56)
[2024-05-21 08:54] LABS: Blood Urea Nitrogen 11.8 mg/dL (9.0-27.0); Carbon Dioxide 28.4 mmol/L (21.6-31.8); Chloride 100 mmol/L (96-109); Glucose 142 mg/dL (70-110); Magnesium 1.9 mg/dL (1.5-2.4); Phosphorus 4.2 mg/dL (2.4-5.1); Potassium 4.8 mmol/L (3.5-5.5); Sodium 135 mmol/L (135-145)
[2024-05-21 08:55] LABS: ALT 78 U/L (10-49); AST 77 U/L (14-35); Albumin 3.3 g/dL (3.8-4.9); Albumin/Globulin Ratio 1.57 Ratio (1.60-3.17); Alkaline Phosphatase 79 U/L (41-126); Calcium 8.4 mg/dL (8.7-10.3); Globulin 2.1 g/dL (1.6-3.3); Total Bilirubin 0.4 mg/dL (0.3-1.2); Total Protein 5.4 g/dL (6.2-8.2)
[2024-05-21] MEDS: MORPHINE SULFATE 4 MG/ML SYRINGE IV PRN (10:30)
[2024-05-21] MEDS: THIAMINE 100 MG TAB PO SCH (12:01)
[2024-05-21] MEDS: APIXABAN 5 MG TAB PO SCH (12:01)
[2024-05-21 12:19] VITALS: BMI 16.8
--- NOTE | 2024-05-21 17:41 | P.HPIM ---
History of Present Illness H&P Date: 05/21/24 History of present illness; 68-year-old man presented to the emergency department for evaluation of what he describes as generalized weakness but specific complaints of right lower extremity pain. States his right leg swelling, and concern for DVT are his most pressing concern patient has a past medical history of DVT and is currently on Eliquis, as well as peripheral vascular disease stating he has bypass done in his leg. Patient currently has no pain in his right leg, however states that he had some pain in his calf that has not subsided, pain in his right groin associated with inguinal lym phadenopathy, as well as pain at the top of his right foot as well as his right heel. Physical therapy will see the patient and assess. Patient states that while he does have a history of DVT he has not necessarily been consistently compliant with his Eliquis. He states that what he felt today was different than what he had felt previously with his DVTs. He states that he utilizes oxygen while at home, up to 4 L, he is currently on 4 L saturating at 98%. He states that he does not do much physical activity often sitting around watching TV. Notable muscle wasting of his lower extremity, with associated generalized weakness. Arterial ultrasound of the right lower extremity to be completed to assess the patient having increased pain of his right foot and heel. Initial lab work done in the ER showed WBCs 5.3, Hgb 11.3, Hct 36.8, PLT 482, sodium 135, chloride 93, BUN 17, creatinine 0.58, glucose 72, AST 102, ALT 92, phosphorus 4.6, troponin negative, proBNP 956, urinalysis showed trace protein otherwise unremarkable EKG done in the ER showed heart rate of 60, no ST segment elevation or depression seen, no T-wave inversions seen. Venous Doppler ultrasound of the right lower extremity was completed, however limited due to patient's body habitus, appears to be negative for DVT as best seen. There is a 4.0 cm heterogeneous area seen in the right groin. Patient admitted to internal medicine service REVIEW OF SYSTEMS: CONSTITUTIONAL: No fever, no malaise, no fatigue. HEENT: No recent visual problems or hearing problems. Denied any sore throat. CARDIOVASCULAR: No chest pain, orthopnea, PND, no palpitations, no syncope. PULMONARY: No shortness of breath, no cough, no hemoptysis. GASTROINTESTINAL: No diarrhea, no nausea, no vomiting, no abdominal pain. NEUROLOGICAL: No headaches, no weakness, no numbness. HEMATOLOGICAL: Denies any bleeding or petechiae. GENITOURINARY: Denies any burning micturition, frequency, or urgency. MUSCULOSKELETAL/RHEUMATOLOGICAL: Denies any joint pain, swelling, or any muscle pain. ENDOCRINE: Denies any polyuria or polydipsia. The rest of the 14-point review of systems is negative. PHYSICAL EXAMINATION: GENERAL: The patient is alert and oriented x3, not in any acute distress. Cachectic looking, unkempt hair and mulligan with associated muscle wasting. HEENT: Pupils are round and equally reacting to light. EOMI. No scleral icterus. No conjunctival pallor. Normocephalic, atraumatic. No pharyngeal erythema. No thyromegaly. CARDIOVASCULAR: S1 and S2 present. No murmurs, rubs, or gallops. PULMONARY: Chest is clear to auscultation, no wheezing or crackles. ABDOMEN: Soft, nontender, nondistended, normoactive bowel sounds. No palpable organomegaly. MUSCULOSKELETAL: No joint swelling or deformity. Muscle wasting noted on the lower extremity. EXTREMITIES: No cyanosis, clubbing. Pitting edema noted on both lower extremities, prone in the right foot that is ailing him. Noted discoloration in the toes of his right foot, improved after working with physical therapist. NEUROLOGICAL: Gross neurological examination did not reveal any focal deficits. SKIN: No rashes. Assessment and plan # Right lower extremity discomfort possibly secondary to DVT Patient has discomfort of the right lower extremity, beginning in his calf which resolved quickly, momentary discomfort in his right groin with associated inguinal lymphadenopathy States pain has been persistent at the top of his right foot as well as heel Venous Doppler ultrasound of the right lower extremity was completed, it was stated that it was limited due to the patient's body habitus, but appears to be negative for DVT at the breast assessment Arterial ultrasound of the right lower extremity ordered, along with ankle brachial index, to further rule out presence of any clot or advanced peripheral vascular disease Patient to continue his Eliquis # Generalized weakness and muscle wasting Patient has notable muscle wasting of the lower extremities Patient states he does not get up and walk around much, mostly sitting around watching TV Physical therapy has been consulted and will see and assess the patient; they recommend subacute rehab in order to take care of increasing strength and functional mobility # Right inguinal lymphadenopathy Noted right inguinal lymphadenopathy Patient notes occasional pain, however not at the moment, he had some earlier today If lymphadenopathy continues, should be followed up on in 2 to 3 weeks, if lymphadenopathy remains patient should consider possible biopsy Continue to monitor vital signs, monitor CBC, monitor CMP, continue telemetry monitoring Labs and medication were reviewed. Continue with symptomatic treatment. Resume home medication. Monitor labs and vitals. DVT and GI prophylaxis. Further recommendations as per clinical course of the patient Dictation was produced using [employer] dictation software. please excuse any grammatical, word or spelling errors. Dr. Belgica MD I have performed a history and physical examination and medical decision making of this patient, discussed the same with the the resident, and agree with the assessment and plan as written. I performed brief physical exam. Past Medical History Past Medical History: Cancer, COPD, Deep Vein Thrombosis (DVT), Thyroid Disorder Additional Past Medical History / Comment(s): pvd History of Any Multi-Drug Resistant Organisms: None Reported Additional Past Surgical History / Comment(s): bypass in legs Past Psychological History: No Psychological Hx Reported Smoking Status: Former smoker Past Alcohol Use History: Daily Past Drug Use History: Marijuana - Past Family History Father Additional Family Medical History / Comment(s): " from coal miners lung" Mother History Unknown: Yes Medications and Allergies Home Medications Medication Instructions Recorded Confirmed Type Apixaban [Eliquis] 5 mg PO BID 02/10/24 05/20/24 History Fluticasone/Umeclidin/Vilanter 1 puff INHALATION RT-DAILY 02/10/24 05/20/24 History [Trelegy Ellipta 100-62.5-25] Potassium Chloride ER [K-Dur 20] 20 meq PO DAILY 02/13/24 05/20/24 History Thiamine [Vitamin B-1] 100 mg PO DAILY #30 tab 02/14/24 05/20/24 Rx Levothyroxine Sodium [Synthroid] 150 mcg PO DAILY 05/20/24 05/20/24 History Allergies Allergy/AdvReac Type Severity Reaction Status Date / Time No Known Allergies Allergy Verified 05/20/24 18:43 Physical Exam Vitals: Vital Signs Temp Pulse Pulse Resp BP BP Pulse Ox 05/21/24 08:08 60 05/21/24 07:56 60 05/21/24 07:00 97.4 F L 52 L 18 158/53 99 05/21/24 02:28 97.7 F 49 L 18 166/81 96 05/20/24 23:56 97.4 F L 50 L 18 162/70 95 05/20/24 23:05 98.2 F 51 L 18 130/84 96 05/20/24 19:56 62 05/20/24 19:48 56 L 05/20/24 18:07 98 F 65 24 140/96 100 Intake and Output 05/20/24 05/21/24 05/21/24 22:59 06:59 14:59 Output Total 625 Balance -625 Output: Urine 625 Other: Voiding Method Urinal Weight 56.245 kg Results CBC & Chem 7: 05/22/24 08:55 05/22/24 08:55 Labs: Abnormal Lab Results - Last 24 Hours (Table) 05/20/24 05/20/24 05/20/24 Range/Units 18:54 18:54 23:02 WBC (3.8-10.6) k/uL RBC 3.68 L (4.30-5.90) m/uL Hgb 11.3 L (13.0-17.5) gm/dL Hct 36.8 L (39.0-53.0) % MCV (80.0-100.0) fL MCHC 30.8 L (31.0-37.0) g/dL Plt Count 482 H (150-450) k/uL Lymphocytes # (Manual) (1.0-4.8) k/uL Sodium 135 L (137-145) mmol/L Chloride 93 L (98-107) mmol/L Carbon Dioxide 34 H (22-30) mmol/L Creatinine 0.58 L (0.66-1.25) mg/dL Glucose 72 L (74-99) mg/dL Phosphorus 4.6 H (2.5-4.5) mg/dL AST 102 H (17-59) U/L ALT 92 H (4-49) U/L Urine Protein Trace H (Negative) 05/21/24 Range/Units 04:03 WBC 3.7 L (3.8-10.6) k/uL RBC 3.47 L (4.30-5.90) m/uL Hgb 11.0 L (13.0-17.5) gm/dL Hct 35.6 L (39.0-53.0) % MCV 102.7 H (80.0-100.0) fL MCHC (31.0-37.0) g/dL Plt Count (150-450) k/uL Lymphocytes # (Manual) 0.63 L (1.0-4.8) k/uL Sodium (137-145) mmol/L Chloride (98-107) mmol/L Carbon Dioxide (22-30) mmol/L Creatinine (0.66-1.25) mg/dL Glucose (74-99) mg/dL Phosphorus (2.5-4.5) mg/dL AST (17-59) U/L ALT (4-49) U/L Urine Protein (Negative) Thrombosis Risk Factor Assmnt - Choose All That Apply Each Factor Represents 1 point: Abnormal pulmonary function (COPD) Each Risk Factor Represents 2 Points: Age 61-74 years Each Risk Factor Represents 3 Points: History of DVT/PE Thrombosis Risk Factor Assessment Total Risk Factor Score: 6 Thrombosis Risk Factor Assessment Level: High Risk
--- NOTE | 2024-05-21 18:30 | US ---
EXAMINATION TYPE: US arterial LE single level DATE OF EXAM: 05/21/2024 5:45 PM CLINICAL INDICATION: Male, 68 years old with history of history of DVT, right foot pain; Patient stat es right foot/leg pain History of: Smoker: Previous Hypertension: No Diabetic: No Hyperlipidemia: No TIA/CVA: No Previous Vascular Surgery: Yes, patient states graft of unknown origin CAD: Yes VT: No Vascular Ulcers: Yes right toe Claudication: No Gangrene: No Doppler Waveforms: Right: Left: Right Brachial Pressure: 121 Left Brachial Pressure: 120 Ankle-Brachial Indices: Right: Unable to obtain PT and DP waveforms due to pitting edema. 2 techs attempted with 4mhz and 8mh z transducers. TORREY unable to be calculated. (Vessel hardening > 1.4; Normal 0.9 - 1.4, Moderate 0.7 - 0.9, Severe 0.5-0.7) IMPRESSION: 1. Nondiagnostic examination. 2. Extensive lower extremity edema.
[2024-05-22] MEDS: SYMBICORT 80-4.5 MCG INHALER INHALATION SCH (08:57)
[2024-05-22 09:26] LABS: Basophils % (A) 0 %; Eosinophils # (A) 0.1 k/uL (0-0.7); Eosinophils % (A) 2 %; HCT 39.1 % (39.0-53.0); HGB 12.4 gm/dL (13.0-17.5); Hypochromasia Slight; Lymphocytes # (A) 1.1 k/uL (1.0-4.8); Lymphocytes % (A) 16 %; MCH 31.6 pg (25.0-35.0); MCHC 31.7 g/dL (31.0-37.0); MCV 99.7 fL (80.0-100.0); Macrocytosis Slight; Mean Platelet Volume 7.3; Monocytes # (A) 0.5 k/uL (0-1.0); Monocytes % (A) 7 %; Neutrophils # (A) 5.2 k/uL (1.3-7.7); Neutrophils % (A) 73 %; Platelet Count 408 k/uL (150-450); RBC 3.93 m/uL (4.30-5.90); RDW 14.8 % (11.5-15.5); WBC 7.1 k/uL (3.8-10.6)
[2024-05-22 09:52] LABS: ALT 78 U/L (4-49); AST 81 U/L (17-59); African American GFR (CKD) >90 (>60 ml/min/1.73 sqM); Albumin 3.3 g/dL (3.5-5.0); Albumin/Globulin Ratio 1.1; Alkaline Phosphatase 61 U/L (38-126); Anion Gap 3 mmol/L; Blood Urea Nitrogen 17 mg/dL (9-20); Calcium 8.9 mg/dL (8.4-10.2); Carbon Dioxide 34 mmol/L (22-30); Chloride 99 mmol/L (98-107); Globulin 2.9 g/dL; Glucose 73 mg/dL (74-99); Non-African American GFR(CKD) >90 (>60 ml/min/1.73 sqM); Potassium 4.1 mmol/L (3.5-5.1); Sodium 136 mmol/L (137-145); Total Bilirubin 0.6 mg/dL (0.2-1.3); Total Protein 6.2 g/dL (6.3-8.2)
--- NOTE | 2024-05-22 13:43 | P.PN ---
Subjective Progress Note Date: 05/22/24 68-year-old man presented to the emergency department for evaluation of what he describes as generalized weakness but specific complaints of right lower extremity pain. States his right leg swelling, and concern for DVT are his most pressing concern patient has a past medical history of DVT and is currently on Eliquis, as well as peripheral vascular disease stating he has bypass done in his leg. Patient currently has no pain in his right leg, however states that he had some pain in his calf that has not subsided, pain in his right groin associated with inguinal lymphadenopathy, as well as pain at the top of his right foot as well as his right heel. Physical therapy will see the patient and assess. Patient states that while he does have a history of DVT he has not necessarily been consistently compliant with his Eliquis. He states that what he felt today was different than what he had felt previously with his DVTs. He states that he utilizes oxygen while at home, up to 4 L, he is currently on 4 L saturating at 98%. He states that he does not do much physical activity often sitting around watching TV. Notable muscle wasting of his lower extremity, with associated generalized weakness. Arterial ultrasound of the right lower extremity to be completed to assess the patient having increased pain of his right foot and heel. Initial lab work done in the ER showed WBCs 5.3, Hgb 11.3, Hct 36.8, PLT 482, sodium 135, chloride 93, BUN 17, creatinine 0.58, glucose 72, AST 102, ALT 92, phosphorus 4.6, troponin negative, proBNP 956, urinalysis showed trace protein otherwise unremarkable EKG done in the ER showed heart rate of 60, no ST segment elevation or depression seen, no T-wave inversions seen. Venous Doppler ultrasound of the right lower extremity was completed, however l imited due to patient's body habitus, appears to be negative for DVT as best seen. There is a 4.0 cm heterogeneous area seen in the right groin. 05/22 - Patient seen at bedside today. Yesterday the patient endorsed continuing pain in his right foot along the top, as well dizziness he will. An arterial ultrasound was ordered of the right lower extremity which was noted to be nondiagnostic due to the patient's body habitus. The ankle-brachial index was unable to be calculated, the exam noted extensive lower extremity edema. Upon visiting with the patient today, his daughter was in the room who was able to provide a much more accurate history/medical history for the patient. States that the patient has previously been diagnosed with non-Hodgkin's lymphoma, has a history of COPD, and a history of heart failure. According to the patient's daughter, he has not explored receiving treatment for any of these conditions. Originally he was having a lower extremity venous bypass surgery completed which is when they noted inguinal lymph nodes that were abnormal, upon sampling he was found to get non-Hodgkin's lymphoma. Patient has not followed up with hematology/oncology and has received no care or treatment for this. Was noted on initial visit however cachectic and weak appearing the patient was, in which he stated that he "did nothing other than sit around and watch TV" all day. Daughter informed us that they have had discussions regarding hospice care before, as a result of the patient's not wanting to go to appointments follow- up. Discussed with the patient and the daughter today about the options of having consultation with hematology/oncology, to which the patient was hesitant stating that he would not follow-up as an outpatient. Additionally, with the patient and his daughter there was a discussion about a consultation to hospice care, for which the patient agreed to meet with them. Additionally, patient remains untreated for his other comorbid conditions. He states that he has home care, a nurse that comes to his house, the nurse had explained to him that most of these conditions are treatable, or potentially treatable, however the patient has shown no desire or willingness/wantingness to explore these options. Consultation to hospice care has been made, awaiting their recommendation. Labs done -WBC 7.1, Hgb 12.4, Hct 39.1, PLT 408, sodium 136, HCO3 34, creatinine 0.51 Imaging done - right lower extremity arterial ultrasound which was deemed n ondiagnostic due to extensive lower extremity edema. The anklebrachial index was unable to be calculated. REVIEW OF SYSTEMS: CONSTITUTIONAL: No fever, no malaise, no fatigue. HEENT: No recent visual problems or hearing problems. Denied any sore throat. CARDIOVASCULAR: No chest pain, orthopnea, PND, no palpitations, no syncope. PULMONARY: No shortness of breath, no cough, no hemoptysis. GASTROINTESTINAL: No diarrhea, no nausea, no vomiting, no abdominal pain. NEUROLOGICAL: No headaches, no weakness, no numbness. HEMATOLOGICAL: Denies any bleeding or petechiae. GENITOURINARY: Denies any burning micturition, frequency, or urgency. MUSCULOSKELETAL/RHEUMATOLOGICAL: Denies any joint pain, swelling, or any muscle pain. ENDOCRINE: Denies any polyuria or polydipsia. The rest of the 14-point review of systems is negative. PHYSICAL EXAMINATION: GENERAL: The patient is alert and oriented x3, not in any acute distress. Cachectic looking, unkempt hair and mulligan with associated muscle wasting. HEENT: Pupils are round and equally reacting to light. EOMI. No scleral icterus. No conjunctival pallor. Normocephalic, atraumatic. No pharyngeal erythema. No thyromegaly. CARDIOVASCULAR: S1 and S2 present. No murmurs, rubs, or gallops. PULMONARY: Chest is clear to auscultation, no wheezing or crackles. ABDOMEN: Soft, nontender, nondistended, normoactive bowel sounds. No palpable organomegaly. MUSCULOSKELETAL: No joint swelling or deformity. Muscle wasting noted on the lower extremity. EXTREMITIES: No cyanosis, clubbing. Pitting edema noted on both lower extremities, prone in the right foot that is ailing him. Noted discoloration in the toes of his right foot, improved after working with physical therapist. NEUROLOGICAL: Gross neurological examination did not reveal any focal deficits. SKIN: No rashes. Assessment and plan # Right lower extremity discomfort possibly secondary to DVT Patient has discomfort of the right lower extremity, beginning in his calf which resolved quickly, momentary discomfort in his right groin with associated inguinal lymphadenopathy States pain has been persistent at the top of his right foot as well as heel Venous Doppler ultrasound of the right lower extremity was completed, it was stated that it was limited due to the patient's body habitus, but appears to be negative for DVT at the breast assessment Arterial ultrasound of the right lower extremity ordered, along with ankle brachial index, to further rule out presence of any clot or advanced peripheral vascular disease Patient to continue his [facility] Hospice care has been consulted, pending their recommendations # Generalized weakness and muscle wasting secondary to confirm non-Hodgkin's lymphoma Patient has notable muscle wasting of the lower extremities Patient states he does not get up and walk around much, mostly sitting around watching TV Physical therapy has been consulted and will see and assess the patient; they recommend subacute rehab in order to take care of increasing strength and functional mobility Hospice care has been consulted, pending their recommendations # Right inguinal lymphadenopathy secondary to confirmed non-Hodgkin's lymphoma Noted right inguinal lymphadenopathy Patient notes occasional pain, however not at the moment, he had some earlier today If lymphadenopathy continues, should be followed up on in 2 to 3 weeks, if lymphadenopathy remains patient should consider possible biopsy Per the patient's daughter, confirmed that he was diagnosed with non-Hodgkin's lymphoma; patient has not followed up with hematology/oncology and has received no treatment regarding his disease Hospice care has been consulted, pending their recommendations Chronic medical conditions # COPD # Heart failure Continue to monitor vital signs, monitor CBC, monitor CMP Labs and medication were reviewed. Continue with symptomatic treatment. Resume home medication. Monitor labs and vitals. DVT and GI prophylaxis. Further recommendations as per clinical course of the patient Dictation was produced using [employer] dictation software. please excuse any grammatical, word or spelling errors. Dr. Belgica MD I have performed a history and physical examination and medical decision making of this patient, discussed the same with the the resident, and agree with the assessment and plan as written. I performed brief physical exam. Objective - Vital Signs Vital signs: Vital Signs Temp 97.4 F L 05/22/24 06:55 Pulse 47 L 05/22/24 06:55 Resp 17 05/22/24 06:55 BP 143/72 05/22/24 06:55 Pulse Ox 100 05/22/24 06:55 FiO2 Intake & Output 05/21/24 05/22/24 05/22/24 18:59 06:59 18:59 Intake Total 120 Output Total 200 Balance 120 -200 Weight 56.245 kg Intake: Oral 120 Output: Urine 200 Other: Voiding Method Urinal Urinal # Voids 3 0 - Labs CBC & Chem 7: 05/22/24 08:55 05/22/24 08:55 Labs: Abnormal Lab Results - Last 24 Hours (Table) 05/21/24 05/21/24 Range/Units 04:03 04:03 Lymphocytes # (Manual) 0.63 L (1.0-4.8) k/uL Creatinine 0.5 L (0.6-1.5) mg/dL BUN/Creatinine Ratio 23.60 H (12.00-20.00) Ratio Glucose 142 H (70-110) mg/dL Calcium 8.4 L (8.7-10.3) mg/dL AST 77 H (14-35) U/L ALT 78 H (10-49) U/L Total Protein 5.4 L (6.2-8.2) g/dL Albumin 3.3 L (3.8-4.9) g/dL Albumin/Globulin Ratio 1.57 L (1.60-3.17) Ratio
[2024-05-22] MEDS: MORPHINE SULFATE 2 MG/ML SYRINGE IVP PRN (14:43)
[2024-05-23 10:11] VITALS: RESP 18; TEMP 98
--- NOTE | 2024-05-23 12:19 | P.DS ---
Providers Date of admission: 05/20/24 20:17 Attending physician: Sue Kothari Primary care physician: Sydnee Sandy Hospital Course: Discharge diagnoses; # Generalized weakness and muscle wasting secondary to confirm non-Hodgkin's lymphoma Patient has notable muscle wasting of the lower extremities Patient states he does not get up and walk around much, mostly sitting around watching TV Physical therapy has been consulted and will see and assess the patient; they recommend subacute rehab in order to take care of increasing strength and functional mobility Hospice care has been consulted, pending their recommendationspatient agr eeable to hospice care outpatient, as he does not meet the inpatient hospice criteria per hospice consultation Patient will be discharged to home hospice care following confirmation of delivery of medical equipment to his home # Right inguinal lymphadenopathy secondary to confirmed non-Hodgkin's lymphoma Noted right inguinal lymphadenopathy Patient notes occasional pain, however not at the moment, he had some earlier today If lymphadenopathy continues, should be followed up on in 2 to 3 weeks, if lymphadenopathy remains patient should consider possible biopsy Per the patient's daughter, confirmed that he was diagnosed with non-Hodgkin's lymphoma; patient has not followed up with hematology/oncology and has received no treatment regarding his disease Hospice care has been consulted, pending their recommendations; patient agreeable to hospice care outpatient, as he does not meet the inpatient hospice criteria per hospice consultation Patient will be discharged to home hospice care following confirmation of delivery of medical equipment to his home # Right lower extremity discomfort possibly secondary to DVT Patient has discomfort of the right lower extremity, beginning in his calf which resolved quickly, momentary discomfort in his right groin with associated inguinal lymphadenopathy States pain has been persistent at the top of his right foot as well as heel Venous Doppler ultrasound of the right lower extremity was completed, it was stated that it was limited due to the patient's body habitus, but appears to be negative for DVT at the breast assessment Arterial ultrasound of the right lower extremity ordered, along with ankle brachial index, to further rule out presence of any clot or advanced peripheral vascular disease Patient to continue his Eliquis Hospice care has been consulted, pending their recommendationspatient agreeable to hospice care outpatient, as he does not meet the inpatient hospice criteria per hospice consultation Patient will be discharged to home hospice care following confirmation of delivery of medical equipment to his home Chronic medical conditions # COPD # Heart failure Hospital course; 68-year-old man presented to the emergency department for evaluation of what he describes as generalized weakness but specific complaints of right lower extremity pain. States his right leg swelling, and concern for DVT are his most pressing concern patient has a past medical history of DVT and is currently on Eliquis, as well as peripheral vascular disease stating he has bypass done in his leg. Patient currently has no pain in his right leg, however states that he had some pain in his calf that has not subsided, pain in his right groin associated with inguinal lymphadenopathy, as well as pain at the top of his right foot as well as his right heel. Physical therapy will see the patient and assess. Patient states that while he does have a history of DVT he has not necessarily been consistently compliant with his Eliquis. He states that what he felt today was different than what he had felt previously with his DVTs. He states that he utilizes oxygen while at home, up to 4 L, he is currently on 4 L saturating at 98%. He states that he does not do much physical activity often sitting around watching TV. Notable muscle wasting of his lower extremity, with associated generalized weakness. Arterial ultrasound of the right lower extremity to be completed to assess the patient having increased pain of his right foot and heel. Initial lab work done in the ER showed WBCs 5.3, Hgb 11.3, Hct 36.8, PLT 482, sodium 135, chloride 93, BUN 17, creatinine 0.58, glucose 72, AST 102, ALT 92, phosphorus 4.6, troponin negative, proBNP 956, urinalysis showed trace protein otherwise unremarkable EKG done in the ER showed heart rate of 60, no ST segment elevation or depression seen, no T-wave inversions seen. Venous Doppler ultrasound of the right lower extremity was completed, however limited due to patient's body habitus, appears to be negative for DVT as best seen. There is a 4.0 cm heterogeneous area seen in the right groin. 05/22 - Patient seen at bedside today. Yesterday the patient endorsed continuing pain in his right foot along the top, as well dizziness he will. An arterial ultrasound was ordered of the right lower extremity which was noted to be nondiagnostic due to the patient's body habitus. The ankle-brachial index was unable to be calculated, the exam noted extensive lower extremity edema. Upon visiting with the patient today, his daughter was in the room who was able to provide a much more accurate history/medical history for the patient. States that the patient has previously been diagnosed with non-Hodgkin's lymphoma, has a history of COPD, and a history of heart failure. According to the patient's daughter, he has not explored receiving treatment for any of these conditions. Originally he was having a lower extremity venous bypass surgery completed which is when they noted inguinal lymph nodes that were abnormal, upon sampling he was found to get non-Hodgkin's lymphoma. Patient has not followed up with hematology/oncology and has received no care or treatment for this. Was noted on initial visit however cachectic and weak appearing the patient was, in which he stated that he "did nothing other than sit around and watch TV" all day. Daughter informed us that they have had discussions regarding hospice care before, as a result of the patient's not wanting to go to appointments follow- up. Discussed with the patient and the daughter today about the options of having consultation with hematology/oncology, to which the patient was hesitant stating that he would not follow-up as an outpatient. Additionally, with the patient and his daughter there was a discussion about a consultation to hospice care, for which the patient agreed to meet with them. Additionally, patient remains untreated for his other comorbid conditions. He states that he has home care, a nurse that comes to his house, the nurse had explained to him that most of these conditions are treatable, or potentially treatable, however the patient has shown no desire or willingness/wantingness to explore these options. Consultation to hospice care has been made, awaiting their recommendation. Labs done -WBC 7.1, Hgb 12.4, Hct 39.1, PLT 408, sodium 136, HCO3 34, creatinine 0.51 Imaging done - right lower extremity arterial ultrasound which was deemed nondiagnostic due to extensive lower extremity edema. The anklebrachial index was unable to be calculated. 05/23 - Patient seen at bedside today. Following discussion with the patient and his daughter, as well as a consultation and meeting with hospice care, the patient has made himself no code. Per hospice care, he is agreeable to signing onto hospice services upon discharge from the hospital as he does not meet hospice inpatient criteria. Medical admit has been ordered for delivery tomorrow. Hospice is prepared for patient discharge home tomorrow following medical equipment delivery. Patient's vital signs overnight were blood pressure 144/82, heart rate of 59, respiratory rate of 16 with an oxygen saturation of 90% on 4 L nasal cannula. Patient is agreeable and prepared for discharge to outpatient hospice care following confirmation of delivery of his medical equipment to home. Hospice care requested for conditional discharge be put in place while awaiting confirmation patient's home is ready for him upon discha rge. From medicine standpoint patient is stable and ready for discharge. PHYSICAL EXAMINATION: GENERAL: The patient is alert and oriented x3, not in any acute distress. Cachectic looking, unkempt hair and mulligan with associated muscle wasting. HEENT: Pupils are round and equally reacting to light. EOMI. No scleral icterus. No conjunctival pallor. Normocephalic, atraumatic. No pharyngeal erythema. No thyromegaly. CARDIOVASCULAR: S1 and S2 present. No murmurs, rubs, or gallops. PULMONARY: Chest is clear to auscultation, no wheezing or crackles. ABDOMEN: Soft, nontender, nondistended, normoactive bowel sounds. No palpable organomegaly. MUSCULOSKELETAL: No joint swelling or deformity. Muscle wasting noted on the lower extremity. EXTREMITIES: No cyanosis, clubbing. Pitting edema noted on both lower extremities, prone in the right foot that is ailing him. Noted discoloration in the toes of his right foot, improved after working with physical therapist. NEUROLOGICAL: Gross neurological examination did not reveal any focal deficits. SKIN: No rashes. Dictation was produced using [employer] dictation software. please excuse any grammatical, word or spelling errors. Dr. Belgica MD I have performed a history and physical examination and medical decision making of this patient, discussed the same with the the resident, and agree with the assessment and plan as written. I performed brief physical exam. Patient Condition at Discharge: Poor Plan - Discharge Summary Discharge Rx Participant: Yes New Discharge Prescriptions: Continue Fluticasone/Umeclidin/Vilanter [Trelegy Ellipta 100-62.5-25] 1 puff INHALATION RT-DAILY Apixaban [Eliquis] 5 mg PO BID Thiamine [Vitamin B-1] 100 mg PO DAILY #30 tab Levothyroxine Sodium [Synthroid] 150 mcg PO DAILY Potassium Chloride ER [K-Dur 20] 20 meq PO DAILY Discharge Medication List Apixaban [Eliquis] 5 mg PO BID 02/10/24 [History] Fluticasone/Umeclidin/Vilanter [Trelegy Ellipta 100-62.5-25] 1 puff INHALATION RT-DAILY 02/10/24 [History] Potassium Chloride ER [K-Dur 20] 20 meq PO DAILY 02/13/24 [History] Thiamine [Vitamin B-1] 100 mg PO DAILY #30 tab 02/14/24 [Rx] Levothyroxine Sodium [Synthroid] 150 mcg PO DAILY 05/20/24 [History] Follow up Appointment(s)/Referral(s): [facility], [NON-STAFF] - As Needed Sydnee Sandy MD [Primary Care Provider] - 1-2 days Patient Instructions/Handouts: Weakness (ED) Discharge Disposition: HOME WITH HOSPICE
[2024-05-23 15:06] VITALS: BP 150/80
[2024-05-23 15:39] VITALS: PULSE 68
== END 2024-05-23 18:00 | disposition hospice, home (50) ==
LOC: EC 18:00 → 6NMEDSUR 20:17
PROVIDERS: ADMIT Hospitalist; ATTEND Hospitalist
DX: C85.95 Non-Hodgkin lymphoma, unspecified, lymph nodes of inguinal region and lower limb (principal); M79.604 Pain in right leg; L97.509 Non-pressure chronic ulcer of other part of unspecified foot with unspecified severity; I73.9 Peripheral vascular disease, unspecified; J44.9 Chronic obstructive pulmonary disease, unspecified; I50.9 Heart failure, unspecified; Z86.718 Personal history of other venous thrombosis and embolism; Z87.891 Personal history of nicotine dependence; Z79.01 Long term (current) use of anticoagulants; Z79.890 Hormone replacement therapy; Z79.51 Long term (current) use of inhaled steroids
CPT/HCPCS: 36415; 80053; 81003; 83605; 83735; 83880; 84100; 84484; 85025; 85610; 85730; 93005; 93922; 94640; 96361; 96374; 96375; 96376; 99285